=== PATIENT | male | born 1985 | race Caucasian/White ===

== ENCOUNTER → 2022-10-18 14:32 | Outpatient (BNVA) | payer OTHER, SELFPAY | PROVIDERS: PCP Internal Medicine; Visit Provider Surgery | DX: Z13.89 Encounter for screening for other disorder (principal) ==

== ENCOUNTER → 2022-10-24 14:29 | Outpatient (BNVA) | payer OTHER, SELFPAY | PROVIDERS: PCP Internal Medicine; Visit Provider Surgery | DX: L72.3 Sebaceous cyst (principal) | CPT/HCPCS: 11423 ==

== ENCOUNTER → 2022-11-01 10:02 | Outpatient (BNVA) | payer OTHER, SELFPAY | PROVIDERS: PCP Internal Medicine; Referring Provider Internal Medicine; Visit Provider Surgery | DX: Z13.89 Encounter for screening for other disorder (principal) ==

== ENCOUNTER → 2022-11-09 11:32 | Outpatient (BNVA) | payer OTHER, SELFPAY | PROVIDERS: PCP Internal Medicine; Visit Provider Physician Assistant | DX: Z13.89 Encounter for screening for other disorder (principal) ==

== ENCOUNTER 2022-11-17 11:30 | Day surgery (SDC) | payer OTHER, SELFPAY ==
[2022-11-15 10:21] VITALS: BMI 23.8
[2022-11-17 11:39] VITALS: BMI 23.8
[2022-11-17 11:46] VITALS: BP 142/98; PULSE 73; RESP 16; TEMP 36.3; O2SAT 97
--- NOTE | 2022-11-17 11:58 | MHC.SHP ---
Pre-Procedural Eval Section A Date of Service: 11/17/22 Section B Chief Complaint: Benign neoplasm of colon, unspecified Relevant Family History (Specify if Yes): No Relevant Social History: None Present Medications: see Short Stay Collaborative assessment Medical History: Significant History (Loza's syndrome) History of Previous Operations: Relevant previous surgery/procedure and date(s) (total colectomy ) Allergies: Allergies Allergy/AdvReac Type Severity Reaction Status Date / Time No Known Allergies Allergy Verified 11/09/22 11:41 Review of Systems Sugical H&P ROS: Negative: Constitution, Cardiovascular, Respiratory, Neurological, Psychiatric, Hem-Onc, Allergic/Immunologic, Gastrointestinal, Genitourinary, Musculoskeletal, Integumentary, Endocrine and Eyes/Ears/Nose/Throat Exam Surgical H&P Exam: Normal: HEENT, Normal: Heart, Normal: Lungs, Normal: Extremities, Normal: Abdomen, Normal: Skin and Normal: Neurological Plan Diagnosis/Plan: Unchanged I have reviewed the history and physical and performed a pertinent physical examination on my patient. No changes have occurred unless specified. Time Spent With Patient Time: Total time managing care of this patient today ____ minutes.
--- NOTE | 2022-11-17 12:03 | P.CONAN_ITS ---
HPI - Anesthesia Eval Consult details Narrative: 37 yo male patient for EGD, Flexible sigmoidoscopy PMFSH Active Problems Active Problems: All Active Problems (Updated 11/09/22 @ 13:41 by Keiry Bourgeois PA-C) Loza's syndrome (Acute) History of prostatectomy (Acute) History of total colectomy (Acute) Colon cancer screening (Acute) Scalp cyst (Acute) Familial adenomatous polyposis (Acute) Encounter for general adult medical examination with abnormal findings (Acute) Past Medical History Medical History Loza's syndrome Family History Family History Father Colon cancer Paternal Grandmother Colon cancer Family history of problems with anesthesia: No Surgical History Surgical History (Updated 11/17/22 @ 12:26 by Nina Moore MD) History of prostatectomy History of removal of cyst Status post proctocolectomy History of Problems with Anesthesia: No Social History Social History Household Members Other:: single- lives with mom Housing: Apartment Patient Tobacco Use Status: Never used Tobacco e-Cigarette/Vaping Use: Never Used Use of substances other than those prescribed or required for medical reasons: No Are you DNR?: No Advance Directives: No Advance Directives Information Provided: Yes Recently lost weight without trying: No Nutrition Risks: No Nutritional Risk Current occupational status: employed Current occupation: [employer] Cognitive needs: No Hearing needs: No Vision needs: Yes Meds Allergies Allergy/AdvReac Type Severity Reaction Status Date / Time No Known Allergies Allergy Verified 11/09/22 11:41 Active Medications: Current Medications Sodium Biphosphate/Sodium Phosphate (Sodium Phosphate,[place]-Dibasic 133 Ml Enema) 133 ml OR ONCE PRN PRN Reason: Consult order Home Medications Medication Instructions Recorded Confirmed Last Taken Type No Known Home Meds 10/05/22 11/17/22 Unknown History Exam Exam Date and Time: November 17, 2022 1203 Height,Weight and Vital Signs: Height 5 ft 6 in Weight 67.132 kg Last Vital Signs Temp 97.4 F 11/17/22 11:46 Pulse 73 11/17/22 11:46 Resp 16 11/17/22 11:46 BP 142/98 H 11/17/22 11:46 Pulse Ox 97 11/17/22 11:46 O2 Del Method 11/17/22 11:46 Airway Mallampati Class: III (Overcrowding of teeth anteriorly. Narrow anterior oral cavity) TM Dist: >3cm Neck ROM: Full Partial: Upper Loose/Missing/Broken Teeth: Yes (Denies loose or broken teeth) Heart: RRR Lungs: CTAB Assessment and Plan Assessment Anesthesia Assessment: Anesthesia Plan Discussed and Chart Reviewed Final Anesthetic Review Family History of Problems with Anesthesia: No History of Problems with Anesthesia: No NPO: Yes ASA Class: III Final Preanesthetic Review: No Changes in Pt Med Stat, Meds/Allgs Chart Reviewed, Consent Obtained/Reviewed and Anes Risks/Benef Reviewed Patient Risk: Intermediate Procedure Risk: Low Assessment/Block/Sedation in SS: Assess/Block/Sedation-SS Anesthetic Plan Anesthetic Plan: MAC: Disposition: Standard PACU
--- NOTE | 2022-11-17 12:06 | PC.NURSE ---
PATIENT AWARE OF PLAN OF THE NEED FOR TWO FLEET ENEMAS PRIOR TO HIS PROCEDURE. INSTRUCTED THE USE OF ENEMA. HAS DONE BEFORE AND WOULD PREFER TO DO HIMSELF.
[2022-11-17] MEDS: Sodium Phosphate,Mono-Dibasic 133 ML ENEMA PR (12:07)
[2022-11-17] MEDS: Lactated Ringers 1,000 ML 100 ML IVCONT (12:40)
--- NOTE | 2022-11-17 12:40 | PC.NURSE ---
YELLOW OUTPUT PER PATIENT
--- NOTE | 2022-11-17 12:45 | W.PM.OPN ---
Operative Note Operative Note Date of Service: 11/17/22 Narrative: Operative Information Procedure Description: EGD, Sigmoidoscopy Indication: Loza Syndrome, hx of polyps Anesthesia: MAC FLEXIBLE TRANSORAL UPPER GASTROINTESTINAL ENDOSCOPY and Sigmoidoscopy Consent: Indications for the procedure and potential complications of bleeding, perforation, reaction to medications and missed diagnosis were discussed with the patient and informed consent was obtained. Instrument: Olympus GIF H 190 J mid size upper endoscope Monitoring: Vital signs and clinical assessment, continuous EKG monitoring, Pulse oximetry, Carbon Dioxide monitoring and blood pressure monitoring were done throughout the procedure. Procedure: The patient was placed in the left lateral decubitis position and pre-procedure medications were administered and a bite block was placed. The endoscope was inserted into the mouth and advanced under direct vision to the third part of duodenum. A careful inspection was made as the upper endoscope was withdrawn including a retroflexed examination of the proximal stomach; Findings and interventions are described below. Findings: Larynx:normal Esophagus: GE junction at 40 cm, diaphragm hiatus at 40 cm, possible short segment Barretts, bx taken Stomach: Fundic gland polyposis in the fundal area. Biopsies were obtained. Grade 2 flap valve on retroflexed examination of the cardia. Duodenum: 8-10 mm sessile polyp lesion removed with cold snare and few smaller areas looked like possible adenomatous polyps, removed with cold forceps side viewing scope used to see ampulla which appeared normal Intervention: Biopsies as noted above SIGMOIDOSCOPY: Procedure: The patient was placed in the left lateral decubitis position and pre-procedure medications were administered. After a digital rectal examination of the ano-rectum, the video colonoscope was inserted into the rectum and advanced through the colon to the rectal anal pouch The colonoscope was slowly withdrawn in a retrograde panoramic fashion and the colon mucosa was carefully examined including a retroflexed view of the rectum. Findings and interventions are described below. Procedure Difficulty: easy Findings: At anastomosis there were few erosions which were oozing blood, these were treated with circumferential APC. The rest of the rectum and the small bowel limbs looked normal Impression and Post Procedure Diagnosis: Endoscopy Findings: possible barretts fundic gland polyposis duodenal polyps Sigmoidoscopy Findings: anastomotic erosions s/p APC Plan: Await Pathology results Repeat endoscopies in 1-2 years or earlier if clinically indicated Above findings were reviewed with the patient and relevant handouts were provided if indicated.
[2022-11-17 13:36] VITALS: BP 116/72; PULSE 66; RESP 14; TEMP 36.6; O2SAT 96
[2022-11-17 13:51] VITALS: BP 123/87; PULSE 68; RESP 16; O2SAT 98
[2022-11-17 14:10] VITALS: BP 123/87; PULSE 62; RESP 18; TEMP 36.1; O2SAT 98
== END 2022-11-17 14:59 | disposition home or self-care (01) ==
PROVIDERS: PCP Internal Medicine; Visit Provider Internal Medicine Gastroenterology
PROC: 0DJ08ZZ Inspection of Upper Intestinal Tract, Via Natural or Artificial Opening Endoscopic (ICD-10-PCS; CPT 43235; principal; 2022-11-17 12:40)
DX: Z12.11 Encounter for screening for malignant neoplasm of colon (principal); Z86.010 Personal history of colon polyps; Z90.49 Acquired absence of other specified parts of digestive tract; Z83.71 Family history of colonic polyps; K62.6 Ulcer of anus and rectum; D13.2 Benign neoplasm of duodenum; K31.7 Polyp of stomach and duodenum; D69.2 Other nonthrombocytopenic purpura; Q87.89 Other specified congenital malformation syndromes, not elsewhere classified; Z80.0 Family history of malignant neoplasm of digestive organs; K44.9 Diaphragmatic hernia without obstruction or gangrene
CPT/HCPCS: 45334; 43251; 43239; 88305; 88342; J2250

== ENCOUNTER → 2022-11-28 10:47 | Outpatient (BNVA) | payer OTHER, SELFPAY | PROVIDERS: PCP Internal Medicine; Referring Provider Internal Medicine; Visit Provider Physician Assistant | DX: Z13.89 Encounter for screening for other disorder (principal) ==

== ENCOUNTER 2022-11-29 10:28 | Outpatient (REF) | payer OTHER, SELFPAY ==
--- NOTE | ~2022-11-29 | US_ITS ---
EXAMINATION: US ABDOMEN COMPLETE CLINICAL INFORMATION: History of colonic neoplasm. COMPARISON: None available. TECHNIQUE: Real-time imaging of the abdominal viscera. FINDINGS: PANCREAS: Normal. ABDOMINAL AORTA: The proximal, mid, and distal segments are normal in caliber. INFERIOR VENA CAVA: Visualized portions are normal. LIVER: Normal size, contour and echotexture. No evidence of liver mass or intrahepatic bile duct dilatation. GALLBLADDER: The gallbladder is physiologically distended. No gallbladder wall thickening or pericholecystic fluid. The instrument technologist has identified a 1.2 x 0.5 x 0.8 cm echogenic focus of the fundus. This has the appearance of a polyp or gallstone. The technologist reports that this was a nonmobile structure. COMMON BILE DUCT: Normal in caliber measuring 0.2 cm in diameter. RIGHT KIDNEY: Normal. No hydronephrosis. No renal calculi or focal parenchymal lesions. The kidney measures 10.2 cm in maximum dimension. LEFT KIDNEY: Normal. No hydronephrosis. No renal calculi or focal parenchymal lesions. The kidney measures 9 cm in maximum dimension. SPLEEN: Normal. The spleen measures 8.3 cm in maximum dimension. FREE FLUID: None. US/US abdomen complete IMPRESSION: 1.2 x 0.5 x 0.8 cm structure of the gallbladder fundus could represent a polyp or a stone adherent to the gallbladder wall. Recommend ultrasound follow-up at 6 months to determine whether the finding persists. If stable at 6 months, then consider follow-up at 12, 24 and 36 months.
[2022-11-29 13:50] LABS: MANUAL DIFF FLAG NO
[2022-11-29 13:58] LABS: Basophils Absolute Auto 0.1 X10*3/uL (0.0-0.2); Basophils Percent Auto 0.9 % (0-2); Eosinophils Absolute Auto 0.1 X10*3/uL (0.0-0.4); Hematocrit 36.8 % (42.0-52.0); Hemoglobin 12.1 g/dl (14.0-18.0); Imm Gran Abs Auto 0.02 X10*3/uL (0.00-0.03); Imm Gran Pct Auto 0.4 % (0.0-0.4); Lymphocytes Absolute Auto 1.6 X10*3/uL (1.2-4.9); Lymphocytes Percent Auto 27.9 % (20-40); Mean Corpuscular HGB Conc 32.9 g/dl (31.0-36.0); Mean Corpuscular Volume 91.3 fL (80.0-98.0); Mean Platelet Volume 10.8 fL (9.4-12.4); Monocytes Absolute Auto 0.7 X10*3/uL (0.1-1.2); Monocytes Percent Auto 12.6 % (2-11); Neutrophils Absolute Auto 3.2 x10*3/uL (2.0-8.3); Neutrophils Percent Auto 56.2 % (45-73); Platelet Count 408 X10*3/uL (160-400); Red Blood Count 4.03 X10*6/uL (4.60-5.80); Red Cell Distribution Width 12.4 % (11.0-16.0); White Blood Count 5.6 X10*3/uL (4.8-10.8)
[2022-11-29 14:26] LABS: Alanine Aminotransferase 22 U/L (0-40); Albumin Level 4.3 g/dL (3.5-5.0); Alkaline Phosphatase 61 U/L (39-117); Anion Gap 12 (12-20); Aspartate Amino Transferase 22 U/L (5-37); Bilirubin Total 1.7 mg/dL (0.0-1.0); Blood Urea Nitrogen 18 mg/dL (9-16); Calcium 9.2 mg/dL (8.4-10.2); Carbon Dioxide 30 mmol/L (22-29); Chloride 105 mmol/L (96-108); Cholesterol 150 mg/dL; Estimated Glomerular Filt Rate > 60; Glucose Fasting 100 mg/dL (60-99); HDL Cholesterol 43 mg/dL; LDL Cholesterol Calculated 77 mg/dl; Potassium 4.4 mmol/L (3.3-5.1); Sodium 143 mmol/L (135-145); Total Protein 6.6 g/dL (6.5-8.0); Triglycerides 151 mg/dL
[2022-11-29 14:50] LABS: Vitamin B12 341 pg/mL (200-900)
[2022-12-04 18:49] LABS: Vitamin D 25-OH, D2 <4 ng/mL; Vitamin D 25-OH, D3 15 ng/mL; Vitamin D 25-OH, Total 15 ng/mL (30-100)
== END 2022-11-29 10:29 | disposition home or self-care (01) ==
LOC: HO.HMGCX 10:28
PROVIDERS: PCP Internal Medicine; Visit Provider Physician Assistant
DX: Z00.01 Encounter for general adult medical examination with abnormal findings (principal); K90.9 Intestinal malabsorption, unspecified; D12.6 Benign neoplasm of colon, unspecified; Q87.89 Other specified congenital malformation syndromes, not elsewhere classified; Z90.49 Acquired absence of other specified parts of digestive tract
CPT/HCPCS: 36415; 76700; 80053; 80061; 82306; 82607; 85025

== ENCOUNTER 2023-09-15 12:37 | Outpatient (AMB) | payer OTHER, SELFPAY ==
[2023-09-15 12:42] VITALS: BP 136/78; PULSE 73; O2SAT 98; BMI 23.0
--- NOTE | 2023-09-15 12:42 | MHC.PC.OV ---
Vital Signs 09/15/23 12:42 Height 5 ft 6 in Weight 142 lb 6 oz BMI 23.0 BP 136/78 Blood Pressure Location Lt brachial Position Sitting Pulse 73 Pulse Source Pulse Oximeter Pulse Oximetry (%) 98 Oxygen Delivery Method Room Air Intake Visit Reasons: Lump right testicle Allergies No Known Allergies Allergy (Verified 09/15/23 12:43) Medication List - Last Reconciled 09/15/23 by Maynor Dowling MD No Known Home Meds Tobacco use date assessed: 09/15/23 Dental Screening Dental Screen Date: 09/15/23 Did you have a dental visit in the last 12 months?: No Did you have a dental problem in the last 6 months where you did not have access to dental care?: No Was dental information given to patient?: No HPI Lump right testicle HPI Details Patient is 38-year-old gentleman with a history of familial adenomatosis polyposis Had ultrasound of his gallbladder November of last year which showed possibility of gallstone or polyp, six-month follow-up ultrasound was recommended He has appointment coming up with the Gastro next month Came in today with a chief complaint of lump right side of scrotum which he noticed 2 weeks ago which is nontender On examination right scrotum is larger than left, however there is no tenderness on palpation. I have ordered ultrasound of scrotum to further evaluate Patient have an appointment for physical examination end of this month. [facility] Medical History Loza's syndrome Surgical History History of esophagogastroduodenoscopy (EGD) Hx of colonoscopy Status post proctocolectomy History of removal of cyst History of prostatectomy Family History Father Colon cancer Paternal Grandmother Colon cancer Social History Household Members Other:: single- lives with mom Housing: Apartment Patient Tobacco Use Status: Never used Tobacco e-Cigarette/Vaping Use: Never Used Current occupational status: employed Current occupation: [employer] Cognitive needs: No Hearing needs: No Vision needs: Yes Review of Systems Const Denies chills and Denies fever(s) ENT Denies epistaxis and Denies nasal discharge Card Denies chest pain Resp Denies chest congestion, Denies cough and Denies hemoptysis GI Denies diarrhea and Denies nausea Skin/Breast Denies rash Neuro Reports no additional complaints Psych Reports no additional complaints Endo Reports no additional complaints Physical exam (Primary Care) Vital Signs: Last Vital Signs Pulse 73 09/15/23 12:42 BP 136/78 09/15/23 12:42 Pulse Ox 98 09/15/23 12:42 Oxygen Delivery Method Room Air 09/15/23 12:42 BMI result Body Mass Index 23.0 Tobacco/Smoking Status: Tobacco use Status Tobacco use date assessed 09/15/23 09/15/23 12:45 Patient Tobacco Use Status Never used Tobacco 09/15/23 12:45 e-Cigarette/Vaping Use Never Used 09/15/23 12:45 Const General: cooperative, comfortable and no acute distress Orientation/consciousness: patient oriented x3 HENMT Head: Yes normocephalic Eyes General: appearance normal, both eyes and all related structures Neck Neck: Yes supple Resp Effort & Inspection: normal respiratory effort, no cough and no stridor Cardio Rhythm: regular rhythm Heart sounds: S1 normal heart sound present and S2 normal heart sound present Other: Right scrotum larger than left, no pain with palpation Skin General skin exam: turgor normal Neuro General: patient oriented x3, tone normal and moves all extremities Extrem Right lower extremity: no edema Left lower extremity: no edema Assessment and Plan Assessment & Plan (1) Lump in scrotum: Code(s): N50.89 - Other specified disorders of the male genital organs (2) Familial adenomatous polyposis: Code(s): D12.6 - Benign neoplasm of colon, unspecified (3) Gallbladder polyp: Code(s): K82.4 - Cholesterolosis of gallbladder Plan Patient is 38-year-old gentleman with a history of familial adenomatosis polyposis Had ultrasound of his gallbladder November of last year which showed possibility of gallstone or polyp, six-month follow-up ultrasound was recommended He has appointment coming up with the Gastro next month Came in today with a chief complaint of lump right side of scrotum which he noticed 2 weeks ago which is nontender On examination right scrotum is larger than left, however there is no tenderness on palpation. I have ordered ultrasound of scrotum to further evaluate Patient have an appointment for physical examination end of this month. Orders: Orders US scrotum doppler Today N50.89 - Other specified disorders of the male genital organs Coding Level of Care Code Est Pt Level 4 (60363) Diagnoses Lump in scrotum N50.89 Familial adenomatous polyposis D12.6 Gallbladder polyp K82.4
== END 2023-09-15 14:15 | disposition home or self-care (01) ==
PROVIDERS: PCP Internal Medicine; Visit Provider Internal Medicine
DX: N50.89 Other specified disorders of the male genital organs (principal); D12.6 Benign neoplasm of colon, unspecified; K82.4 Cholesterolosis of gallbladder
CPT/HCPCS: 99214

== ENCOUNTER 2023-09-18 08:52 | Outpatient (AMB) | payer OTHER, SELFPAY ==
--- NOTE | 2023-09-18 08:57 | MHC.OFFVIS ---
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 patoent cc: nauseas and abdominal discomfort. Senior Housekeeper Required: No Accompanied by: Self / Same As Patient Allergies No Known Allergies Allergy (Verified 09/18/23 08:57) HPI HPI Comments History of Present Illness Details A 38-year-old male with Loza's s/p total colectomy- disease follows as planned to schedule 1 year EGD and sigmoidoscopy He presents with nausea for about the past month, seems to come and go he cannot identify anything specific. He does not have any abdominal pain but feels pressure-no vomiting Appetite is fair early satiety intermittently He has not had any fever chills He has be several very small stools daily (this is typical for him) [facility] Medical History Loza's syndrome Surgical History History of esophagogastroduodenoscopy (EGD) Hx of colonoscopy Status post proctocolectomy History of removal of cyst History of prostatectomy Family History Father Colon cancer Paternal Grandmother Colon cancer Social History Household Members Other:: single- lives with mom Housing: Apartment Patient Tobacco Use Status: Never used Tobacco e-Cigarette/Vaping Use: Never Used Current occupational status: employed Current occupation: [employer] Cognitive needs: No Hearing needs: No Vision needs: Yes Review of Systems Const All systems reviewed & are unremarkable except as noted in HPI and below Card Denies chest pain and Denies dyspnea Resp Denies dyspnea GI Denies hematochezia, Denies change in stool character, Denies GI cramping, Reports early satiety, Denies heartburn, Reports loose stools, Reports nausea and Denies vomiting Physical Exam Vital Signs: Last Vital Signs Pulse 89 09/18/23 09:00 BP 133/87 01/08/24 09:00 BMI result Body Mass Index 22.9 Const General: cooperative, healthy appearing, comfortable and no acute distress Orientation/consciousness: patient oriented x3 Limitations: no limitations Eyes Sclerae: sclerae normal Resp Effort & Inspection: normal respiratory effort and able to speak in complete sentences Auscultation: clear to auscultation bilaterally, no rales, no rhonchi and no wheezes Cardio Rate: regular rate Rhythm: regular rhythm Heart sounds: S1 normal heart sound present and S2 normal heart sound present GI Palpation (GI): Soft to palpation, Tenderness to palpation present (GI) (Nonspecific, mild, diffuse) and no guarding Auscultation: normal bowel sounds Skin Other: Lips chapped General skin exam: no rashes or lesions noted Neuro General: patient oriented x3 Extrem General: Yes full ROM Psych Appearance: grossly normal and well kempt Mental Status: mental status grossly normal Speech and movement: Normal speech and movement present and Clear speech present Affect: normal affect Attitude: cooperative Thought process: Normal thought process present Thought content: Normal thought content present Insight: Good insight present (Psych) Judgement: Good judgement present (Psych) Results Reviewed Results Reviewed: US/US abdomen complete IMPRESSION: 1.2 x 0.5 x 0.8 cm structure of the gallbladder fundus could represent a polyp or a stone adherent to the gallbladder wall. Recommend ultrasound follow-up at 6 months to determine whether the finding persists. If stable at 6 months, then consider follow-up at 12, 24 and 36 months. Assessment & Plan Assessment & Plan (1) Loza's syndrome: Comment: And due for 1 year repeat endoscopy Code(s): Q87.89 - Other specified congenital malformation syndromes, not elsewhere classified Plan: Sigmoidoscopy, EGD (2) History of total colectomy: Code(s): Z90.49 - Acquired absence of other specified parts of digestive tract (3) Familial adenomatous polyposis: Code(s): D12.6 - Benign neoplasm of colon, unspecified Plan: Sigmoidoscopy and EGD (4) Nausea: Comment: zofran trial-try to identify if does not resolve encouraged to call- Code(s): R11.0 - Nausea Plan: Try to identify EGD as planned Trial of Zofran if persists follow-up (5) Gallbladder polyp: Comment: US/US abdomen complete IMPRESSION: 1.2 x 0.5 x 0.8 cm structure of the gallbladder fundus could represent a polyp or a stone adherent to the gallbladder wall. Recommend ultrasound follow-up at 6 months to determine whether the finding persists. If stable at 6 months, then consider follow-up at 12, 24 and 36 months. Code(s): K82.4 - Cholesterolosis of gallbladder Plan: Resubmit it order for follow-up ultrasound Plan EGD/ SIGMOIDOscopy-DR. OLMEDO- ESTABLISHED- U/s Orders: Orders US abdomen complete Today D12.6 - Benign neoplasm of colon, unspecified, K82.4 - Cholesterolosis of gallbladder, Q87.89 - Other specified congenital malformation syndromes, not elsewhere classified, R11.0 - Nausea, Z90.49 - Acquired absence of other specified parts of digestive tract EGD/Sigmoid Combo -GI Use Only Today D12.6 - Benign neoplasm of colon, unspecified, Q87.89 - Other specified congenital malformation syndromes, not elsewhere classified, R11.0 - Nausea, Z90.49 - Acquired absence of other specified parts of digestive tract Complete Blood Count Auto Diff Today Q87.89 - Other specified congenital malformation syndromes, not elsewhere classified, R11.0 - Nausea Comprehensive Met. Panel Today K82.4 - Cholesterolosis of gallbladder, Q87.89 - Other specified congenital malformation syndromes, not elsewhere classified, R11.0 - Nausea Medications: New ondansetron 4 mg PO DAILY 20 tabs 0RF Patient Instructions: Very pleasant 38-year-old male Loza syndrome, status post total colectomy due for EGD and sigmoidoscopy, presents with new onset of nausea- Try to identify culprit Will give trial to Zofran If symptoms persist will follow-up EGD and sigmoidoscopy as planned Will update labs CBC and CMP Recent admitted order for ultrasound Encouraged to call with any questions or concerns Coding Level of Care Code Est Pt Level 4 (86941) Diagnoses Loza's syndrome Q87.89 History of total colectomy Z90.49 Familial adenomatous polyposis D12.6 Nausea R11.0 Gallbladder polyp K82.4 Time Spent (min) 30
[2023-09-18 09:00] VITALS: BP 133/87; PULSE 89; BMI 22.9
== END 2023-09-18 09:33 | disposition home or self-care (01) ==
PROVIDERS: PCP Internal Medicine; Visit Provider Physician Assistant
DX: Q87.89 Other specified congenital malformation syndromes, not elsewhere classified (principal); Z90.49 Acquired absence of other specified parts of digestive tract; D12.6 Benign neoplasm of colon, unspecified; R11.0 Nausea; K82.4 Cholesterolosis of gallbladder
CPT/HCPCS: 99214

== ENCOUNTER → 2023-09-18 08:52 | Outpatient (BNVA) | payer OTHER, SELFPAY | PROVIDERS: PCP Internal Medicine; Visit Provider Physician Assistant ==

== ENCOUNTER 2023-09-18 10:03 | Outpatient (REF) | payer OTHER, SELFPAY ==
[2023-09-18 14:23] LABS: Alanine Aminotransferase 40 U/L (0-40); Albumin Level 4.5 g/dL (3.5-5.0); Alkaline Phosphatase 60 U/L (39-117); Anion Gap 10 (12-20); Aspartate Amino Transferase 26 U/L (5-37); Bilirubin Total 1.9 mg/dL (0.0-1.0); Blood Urea Nitrogen 18 mg/dL (9-16); Calcium 9.6 mg/dL (8.4-10.2); Carbon Dioxide 27 mmol/L (22-29); Chloride 104 mmol/L (96-108); Estimated Glomerular Filt Rate > 60; Glucose Random 94 mg/dL (60-115); Potassium 3.9 mmol/L (3.3-5.1); Sodium 137 mmol/L (135-145); Total Protein 7.5 g/dL (6.5-8.0)
== END 2023-09-18 10:04 | disposition home or self-care (01) ==
LOC: HO.HMGCLDS 10:03
PROVIDERS: PCP Internal Medicine; Visit Provider Physician Assistant
DX: R11.0 Nausea (principal); Q87.89 Other specified congenital malformation syndromes, not elsewhere classified; K82.4 Cholesterolosis of gallbladder
CPT/HCPCS: 36415; 80053; 85025

== ENCOUNTER 2023-09-27 09:53 | Outpatient (REF) | payer OTHER, SELFPAY ==
--- NOTE | ~2023-09-27 | US_ITS ---
EXAMINATION: US ABDOMEN COMPLETE CLINICAL INFORMATION: Prior abnormal imaging. Follow-up. COMPARISON: 11/29/2022 TECHNIQUE: Real-time imaging of the abdominal viscera. FINDINGS: PANCREAS: Tail obscured. ABDOMINAL AORTA: The proximal, mid, and distal segments are normal in caliber. INFERIOR VENA CAVA: Visualized portions are normal. LIVER: The liver is normal in size. The liver contour is normal. There is diffuse increased liver parenchymal echogenicity, consistent with hepatic steatosis. No focal hepatic lesion. There is no intrahepatic biliary duct dilatation seen. GALLBLADDER: The gallbladder is physiologically distended. No gallbladder wall thickening or pericholecystic fluid. There is a dependent focus at the gallbladder fundus measuring 0.8 x 0.3 x 0.4 cm with single artifact. This may represent a calculus. Previous measurements are 1.3 x 0.5 x 0.9 cm. No sonographic Garcia's sign. COMMON BILE DUCT: Normal in caliber measuring 0.3 cm in diameter. RIGHT KIDNEY: No hydronephrosis. No renal calculi or focal parenchymal lesions. The kidney measures 10.3 cm in maximum dimension. LEFT KIDNEY: No hydronephrosis. No renal calculi or focal parenchymal lesions. The kidney measures 9.9 cm in maximum dimension. SPLEEN: The spleen measures 9.0 cm in maximum dimension. FREE FLUID: None. US/US abdomen complete IMPRESSION: Possible gallstone measuring 0.8 x 0.2 x 0.4 cm.
--- NOTE | ~2023-09-27 | US_ITS ---
EXAMINATION: US SCROTUM CLINICAL INFORMATION: Other specified disorders of the male genital organs. Scrotal mass. COMPARISON: None available. TECHNIQUE: A sonogram of the scrotum was performed assessing gonzalez-scale appearance and color Doppler flow. Spectral Doppler analysis of the arterial and venous flow were performed in the testes bilaterally. FINDINGS: RIGHT: Right testicle measures 4.7 x 1.9 x 3.0 cm, volume 14.0 mL. In the anteromedial right testicle adjacent to the tunica albuginea, a 4 x 3 x 4 mm heterogeneously hypoechoic focus is seen. This shows no associated color Doppler flow. Spectral Doppler analysis of the arterial and venous flow is normal in the right testis. Right epididymal head is normal in size. No right varicocele is seen. There is a small hydrocele. A 4 mm right extratesticular calcification ( scrotal susanna ) is seen. Right epididymal Doppler flow is normal. LEFT: Left testicle measures 4.7 x 2.2 x 2.9 cm, volume 15.7 mL. No focal testicular parenchymal lesions are visualized. Spectral Doppler analysis of the arterial and venous flow is normal in the left testis. Left epididymal head is normal in size. No left varicocele is seen. There is a small hydrocele. Left epididymal Doppler flow is normal. US/US scrotum IMPRESSION: 1. A 4 mm heterogeneously hypoechoic density is seen in the anteromedial right testicle. There is no associated color Doppler flow. The etiology is indeterminate, and a neoplasm is not excluded. Urology evaluation and management is recommended, with consideration for short-term follow-up ultrasound imaging to assess for stability/regression. 2. A 4 mm right extratesticular calcification is seen. 3. There are small bilateral hydroceles.
== END 2023-09-27 09:54 | disposition home or self-care (01) ==
LOC: HO.HMGCX 09:53
PROVIDERS: PCP Internal Medicine; Visit Provider Physician Assistant
DX: N50.89 Other specified disorders of the male genital organs (principal); D12.6 Benign neoplasm of colon, unspecified; K82.4 Cholesterolosis of gallbladder; R11.0 Nausea; Q87.89 Other specified congenital malformation syndromes, not elsewhere classified; Z90.49 Acquired absence of other specified parts of digestive tract
CPT/HCPCS: 76700; 76870

== ENCOUNTER 2023-10-10 11:37 | Outpatient (AMB) | payer OTHER, SELFPAY ==
--- NOTE | 2023-10-10 11:41 | MHC.PC.OV ---
Vital Signs 10/10/23 11:42 Height 5 ft 6 in Weight 139 lb 8 oz BMI 22.5 BP 142/84 H Blood Pressure Location Lt brachial Position Sitting Pulse 85 Pulse Source Pulse Oximeter Pulse Oximetry (%) 99 Oxygen Delivery Method Room Air Intake Visit Reasons: Annual Physical Allergies No Known Allergies Allergy (Verified 10/10/23 11:42) Medication List - Last Reconciled 10/10/23 by Maynor Dowling MD ondansetron 4 mg PO DAILY Tobacco use date assessed: 10/10/23 Dental Screening Dental Screen Date: 10/10/23 Did you have a dental visit in the last 12 months?: No Did you have a dental problem in the last 6 months where you did not have access to dental care?: No Was dental information given to patient?: No HPI Annual Physical HPI Details Patient is a 38-year-old gentleman came in today for physical exam He has history of chronic nausea off and on, gallbladder polyp, Loza's syndrome, history of total colectomy, patient is established with [facility] last visit was of this month, patient is having EGD and sigmoidoscopy every year. Labs were done recently reviewed His blood pressure is elevated today We talked about starting to monitor blood pressure at home, he will let me know if it runs above 140 systolic It has been running fine but since early this month I see that his systolic blood pressure has been running in 130s and today it is 142 He is still waiting for urology appointment I have given him a number to call in book his own appointment He was seen few weeks ago when he came in with a concern of lump on his right testes We ordered the ultrasound which showed 1. A 4 mm heterogeneously hypoechoic density is seen in the anteromedial right testicle. There is no associated color Doppler flow. The etiology is indeterminate, and a neoplasm is not excluded. Urology evaluation and management is recommended, with consideration for short-term follow-up ultrasound imaging to assess for stability/regression. 2. A 4 mm right extratesticular calcification is seen. 3. There are small bilateral hydroceles. He had labs done early this month through Gastroenterology Reviewed He offers no complaints today Patient will return in 1 year for physical exam or earlier depending on his blood pressure readings at home [facility] Medical History Loza's syndrome Surgical History History of esophagogastroduodenoscopy (EGD) Hx of colonoscopy Status post proctocolectomy History of removal of cyst History of prostatectomy Family History Father Colon cancer Paternal Grandmother Colon cancer Social History Household Members Other:: single- lives with mom Housing: Apartment Patient Tobacco Use Status: Never used Tobacco e-Cigarette/Vaping Use: Never Used Current occupational status: employed Current occupation: [email or web address] Cognitive needs: No Hearing needs: No Vision needs: Yes Review of Systems Const Denies chills, Denies fever(s) and Denies headache(s) Eyes Denies blurry vision ENT Denies headache(s), Denies nasal discharge, Denies nasal obstruction, Denies odynophagia and Denies sinus pain Card Denies chest pain at rest and Denies chest pain with activity Resp Denies cough and Denies hemoptysis GI Denies diarrhea, Denies odynophagia, Denies vomiting and Denies hematemesis Reports as per HPI Musc Denies abnormal gait Skin/Breast Reports as per HPI Neuro Denies Neuro-related abnormal movements, Denies Abnormal speech present, Denies abnormal gait, Denies headache(s) and Denies Sensory deficit (Neuro) Psych Denies mood swings and Denies paranoia Endo Reports as per HPI Ybron/Lymph Reports as per HPI Aller/Immun Reports as per HPI Physical exam (Primary Care) Vital Signs: Last Vital Signs Pulse 85 10/10/23 11:42 BP 142/84 H 10/10/23 11:42 Pulse Ox 99 10/10/23 11:42 Oxygen Delivery Method Room Air 10/10/23 11:42 BMI result Body Mass Index 22.5 Tobacco/Smoking Status: Tobacco use Status Tobacco use date assessed 10/10/23 10/10/23 11:45 Patient Tobacco Use Status Never used Tobacco 10/10/23 11:41 e-Cigarette/Vaping Use Never Used 10/10/23 11:41 Const General: cooperative, comfortable and no acute distress Orientation/consciousness: patient oriented x3 HENMT Head: Yes normocephalic and Yes atraumatic Eyes General: appearance normal, both eyes and all related structures Pupils: Equal, round and reactive pupils present EOM: EOMs intact bilaterally Neck Neck: Yes supple and No lymphadenopathy Thyroid: Thyroid normal Lymphatic: no lymphadenopathy noted Resp Effort & Inspection: normal respiratory effort and able to speak in complete sentences Auscultation: clear to auscultation bilaterally Cardio Heart sounds: S1 normal heart sound present and S2 normal heart sound present GI Palpation (GI): Soft to palpation and nontender Auscultation: normal bowel sounds General: Yes no CVA tenderness Back/Spine/Pelvis Back: no CVA tenderness Skin General skin exam: elasticity normal and turgor normal Neuro General: patient oriented x3 and gait normal Cranial nerves: Yes Equal, round and reactive pupils present Speech: No Abnormal speech present Sensory Exam: No Sensory deficit (Neuro) Coordination: tandem gait normal and Romberg test negative Extrem General: Yes normal exam except as noted and No edema Assessment and Plan Assessment & Plan (1) Encounter for general adult medical examination with abnormal findings: Code(s): Z00.01 - Encounter for general adult medical examination with abnormal findings (2) Familial adenomatous polyposis: Code(s): D12.6 - Benign neoplasm of colon, unspecified (3) Colon cancer screening: Code(s): Z12.11 - Encounter for screening for malignant neoplasm of colon (4) Loza's syndrome: Comment: And due for 1 year repeat endoscopy Code(s): Q87.89 - Other specified congenital malformation syndromes, not elsewhere classified (5) Lump in scrotum: Code(s): N50.89 - Other specified disorders of the male genital organs (6) Gallbladder polyp: Comment: US/US abdomen complete IMPRESSION: 1.2 x 0.5 x 0.8 cm structure of the gallbladder fundus could represent a polyp or a stone adherent to the gallbladder wall. Recommend ultrasound follow-up at 6 months to determine whether the finding persists. If stable at 6 months, then consider follow-up at 12, 24 and 36 months. Code(s): K82.4 - Cholesterolosis of gallbladder (7) Nausea: Comment: zofran trial-try to identify if does not resolve encouraged to call- Code(s): R11.0 - Nausea (8) Hydrocele of testis: Code(s): N43.3 - Hydrocele, unspecified Plan Patient is a 38-year-old gentleman came in today for physical exam He has history of chronic nausea off and on, gallbladder polyp, Loza's syndrome, history of total colectomy, patient is established with [facility] last visit was 8th of this month, patient is having EGD and sigmoidoscopy every year. Labs were done recently reviewed His blood pressure is elevated today We talked about starting to monitor blood pressure at home, he will let me know if it runs above 140 systolic It has been running fine but since early this month I see that his systolic blood pressure has been running in 130s and today it is 142 He is still waiting for urology appointment I have given him a number to call in book his own appointment He was seen few weeks ago when he came in with a concern of lump on his right testes We ordered the ultrasound which showed 1. A 4 mm heterogeneously hypoechoic density is seen in the anteromedial right testicle. There is no associated color Doppler flow. The etiology is indeterminate, and a neoplasm is not excluded. Urology evaluation and management is recommended, with consideration for short-term follow-up ultrasound imaging to assess for stability/regression. 2. A 4 mm right extratesticular calcification is seen. 3. There are small bilateral hydroceles. He had labs done early this month through Gastroenterology Reviewed He offers no complaints today Patient will return in 1 year for physical exam or earlier depending on his blood pressure readings at home Coding Level of Care Code Est Pt Prev Care 18-39y([id number]) Diagnoses Encounter for general adult medical examination with abnormal findings Z00.01 Familial adenomatous polyposis D12.6 Colon cancer screening Z12.11 Loza's syndrome Q87.89 Lump in scrotum N50.89 Gallbladder polyp K82.4 Nausea R11.0 Hydrocele of testis N43.3
[2023-10-10 11:42] VITALS: BP 142/84; PULSE 85; O2SAT 99; BMI 22.5
== END 2023-10-10 16:21 | disposition home or self-care (01) ==
PROVIDERS: Visit Provider Internal Medicine
DX: Z00.01 Encounter for general adult medical examination with abnormal findings (principal); D12.6 Benign neoplasm of colon, unspecified; Q87.89 Other specified congenital malformation syndromes, not elsewhere classified; N50.89 Other specified disorders of the male genital organs; K82.4 Cholesterolosis of gallbladder; R11.0 Nausea; N43.3 Hydrocele, unspecified
CPT/HCPCS: 99395

== ENCOUNTER 2023-10-25 15:14 | Outpatient (AMB) | payer OTHER, SELFPAY ==
--- NOTE | 2023-10-25 15:35 | A.OFFVIS_ITS ---
Intake Intake Visit Reasons: abnormal scrotal US(set) Intake Note: New Patient presents for initial visit for right testicular lump Imagin09/27/23 Urology Medications: none Blood Thinner: none Content Producer Required: No Right Of Way Buyer: Right Of Way Buyer offered & declined Accompanied by: Self / Same As Patient Allergies No Known Allergies Allergy (Verified 10/26/23 00:20) Medication List - Last Reconciled 10/26/23 by ROSALIA Raygoza No Known Home Meds HPI HPI Comments History of Present Illness Details Chang Rodríguez is a pleasant 38-year-old male patient of Dr. Dowling. 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 He presents to the office today as a new patient for right-sided testicular mass. He reports following up with his PCP regarding this issue at which time a scrotal ultrasound was ordered and performed. These results were reviewed with the patient today. A 4 mm heterogeneous hypoechoic density is seen in the anteromedial right testicle. There is no associated color Doppler flow. The etiology is indeterminate, and a neoplasm is not excluded. A 4 mm right extratesticular calcification is seen. There are small bilateral hydroceles. When asked he reports noting palpable mass approximately 2 months ago. He denies any previous trauma to the area. He does not have any children. In assessment of the patient today small bilateral hydroceles are palpated otherwise no palpable masses, lesions, and or nodules. He denies any bothersome urinary issues or concerns. He denies pain. He denies urinary urgency, urinary frequency, incontinence, nocturia, hematuria, dysuria, foul smelling urine, changes to urinary stream, flank pain, fever, and or chills. He is happy with his current voiding parameters. [facility] Medical History Loza's syndrome Surgical History History of esophagogastroduodenoscopy (EGD) Hx of colonoscopy Status post proctocolectomy History of removal of cyst History of prostatectomy Family History Father Colon cancer Paternal Grandmother Colon cancer Social History Household Members Other:: single- lives with mom Housing: Apartment Patient Tobacco Use Status: Never used Tobacco e-Cigarette/Vaping Use: Never Used Current occupational status: employed Current occupation: [employer] Cognitive needs: No Hearing needs: No Vision needs: Yes Review of Systems Const Reports no additional complaints Eyes Reports no additional complaints ENT Reports no additional complaints Card Reports no additional complaints Resp Reports no additional complaints GI Reports as per HPI Reports as per HPI Musc Reports no additional complaints Neuro Reports no additional complaints Psych Reports no additional complaints Physical Exam Const General: cooperative, comfortable, no acute distress, well developed, alert and awake Nutritional Appearance: thin Orientation/consciousness: patient oriented x3 Limitations: no limitations HEENT Head: Yes normal to inspection, Yes normocephalic and Yes atraumatic Ears: hearing grossly normal bilaterally Eyes General: appearance normal, both eyes and all related structures Neck Neck: Yes normal visual inspection and Yes trachea midline Chest Chest palpation & inspection: normal inspection of the chest Resp Effort & Inspection: normal respiratory effort and able to speak in complete sentences Cardio Rate: regular rate GI Inspection: Yes normal to inspection General: Yes no CVA tenderness Back/Spine/Pelvis Back: no CVA tenderness Skin General skin exam: no rashes or lesions noted Neuro General: patient oriented x3 Extrem General: Yes normal to inspection Psych Appearance: grossly normal and well kempt Mental Status: mental status grossly normal Speech and movement: Normal speech and movement present and Clear speech present Affect: normal affect Attitude: cooperative Thought process: Normal thought process present Thought content: Normal thought content present Insight: Fair insight present (Psych) Judgement: Fair judgement present (Psych) Results AMB Urinalysis, Automated UA Leukoctes 0 Asim/uL Last Edit by Osiris Bermudez CMA on 10/25/23 15 :49 UA Nitrite Negative Last Edit by Osiris Bermudez CMA on 10/25/23 15: 49 UA Urobilinogen 0.2 mg/dL Last Edit by Osiris Bermudez CMA on 4 15:49 UA Protein 15 mg/dL Last Edit by Osiris Bermudez CMA on 10/25/23 15:4 9 UA pH 6.0 Last Edit by Osiris Bermudez CMA on 10/25/23 15:49 UA Blood 10 Mathieu/uL Last Edit by Osiris Bermudez Bermudez, [facility] on 10/25/23 15:49 UA Specific [place] 1.030 Last Edit by Osiris Bermudez Bermudez, [facility] on 15:49 UA Ketone Negative Last Edit [facility] Mel[facility], [facility] on 10/25/23 15:4 9 UA Bilirubin 0 mg/dL Last Edit by [facility], [facility] on 10/25/23 15: 49 UA Glucose 0 mg/dL Last Edit by [facility], [facility] on 10/25/23 15:49 Results Reviewed Results Reviewed: Laboratory Last Values Urine pH (Auto) 6.0 10/25/23 15:36 Specific [place] (Auto) 1.030 10/25/23 15:36 Urine Protein (Auto) 15 mg/dL 10/25/23 15:36 Glucose (UA)(Auto) 0 mg/dL 10/25/23 15:36 Urine Ketones (Auto) Negative 10/25/23 15:36 Urine Blood (Auto) 10 Mathieu/uL 10/25/23 15:36 Urine Nitrite (Auto) Negative 10/25/23 15:36 Urine Bilirubin (Auto) 0 mg/dL 10/25/23 15:36 Urine Urobilinogen (Auto) 0.2 mg/dL 10/25/23 15:36 Leukocyte Esterase (Auto) 0 Asim/uL 10/25/23 15:36 Date of Service: 09/27/23 EXAMINATION: US SCROTUM FINDINGS: RIGHT: Right testicle measures 4.7 x 1.9 x 3.0 cm, volume 14.0 mL. In the anteromedial right testicle adjacent to the tunica albuginea, a 4 x 3 x 4 mm heterogeneously hypoechoic focus is seen. This shows no associated color Doppler flow. Spectral Doppler analysis of the arterial and venous flow is normal in the right testis. Right epididymal head is normal in size. No right varicocele is seen. There is a small hydrocele. A 4 mm right extratesticular calcification ( scrotal susanna ) is seen. Right epididymal Doppler flow is normal. LEFT: Left testicle measures 4.7 x 2.2 x 2.9 cm, volume 15.7 mL. No focal testicular parenchymal lesions are visualized. Spectral Doppler analysis of the arterial and venous flow is normal in the left testis. Left epididymal head is normal in size. No left varicocele is seen. There is a small hydrocele. Left epididymal Doppler flow is normal. IMPRESSION: 1. A 4 mm heterogeneously hypoechoic density is seen in the anteromedial right testicle. There is no associated color Doppler flow. The etiology is indeterminate, and a neoplasm is not excluded. Urology evaluation and management is recommended, with consideration for short-term follow-up ultrasound imaging to assess for stability/regression. 2. A 4 mm right extratesticular calcification is seen. 3. There are small bilateral hydroceles. Assessment & Plan Assessment & Plan (1) Lump in scrotum: Code(s): N50.89 - Other specified disorders of the male genital organs Plan In office urinalysis results reviewed with the patient today; as noted above. Recent scrotal ultrasound results reviewed with the patient today. Will obtain labs for further assessment evaluation. Discussed at length potential causes of hydroceles. Patient currently denies any bothersome urinary issues or concerns. He is happy with his current voiding parameters. Will reassess scrotum in 1 month for further assessment evaluation Follow-up in 1 month with labs to be completed prior; or sooner with any issues, concerns, and or questions. Orders: Orders Lactate Dehydrogenase 10/25/23 C62.90 - Malignant neoplasm of unspecified testis, unspecified whether descended or undescended Alpha Fetoprotein 10/25/23 N50.89 - Other specified disorders of the male genital organs HCG Tumor Marker 10/25/23 C62.90 - Malignant neoplasm of unspecified testis, unspecified whether descended or undescended AMB Urinalysis Automated 10/25/23 R33.9 - Retention of urine, unspecified Patient Instructions: The patient had an opportunity to ask questions regarding the treatment plan. All questions were answered. Physical exam, labs, and imaging were discussed and reviewed in detail. As well as risks, benefits, and discussion of treatment choices. No major barriers to understanding were identified. The patient expressed understanding and agreement with the above treatment plan. The patient was made aware they should contact our office by phone for worsening of their current condition, the appearance of new symptoms, or with any questions or concerns. Compliance is encouraged with any medications and follow up testing that is ordered. It is a privilege to be allowed the opportunity to participate in? your urological care.? Again, if you have any questions or concerns If you have any questions or concerns please do not hesitate to contact me. The office is [phone]. This note is constructed using voice recognition software. While every effort has been made to ensure accuracy marine chronometer assembler errors may have been included. Yours sincerely, ROSALIA Raygoza Coding Level of Care Code New Pt Level 3 (10865) Diagnoses Lump in scrotum N50.89
== END 2023-10-25 16:08 | disposition home or self-care (01) ==
PROVIDERS: PCP Internal Medicine; Visit Provider Nurse Practitioner Family
DX: N50.89 Other specified disorders of the male genital organs (principal)
CPT/HCPCS: 99203

== ENCOUNTER → 2023-10-25 15:14 | Outpatient (BNVA) | payer OTHER, SELFPAY | PROVIDERS: PCP Internal Medicine; Visit Provider Nurse Practitioner Family | DX: N50.89 Other specified disorders of the male genital organs (principal) | CPT/HCPCS: 81003 ==

== ENCOUNTER 2023-10-30 10:35 | Outpatient (REF) | payer OTHER, SELFPAY ==
[2023-10-30 13:57] LABS: Lactate Dehydrogenase 327 U/L (118-273)
[2023-10-31 05:08] LABS: HCG Tumor Marker <5 mIU/mL (<5)
[2023-10-31 13:07] LABS: Alpha Fetoprotein 4.5 ng/mL (<6.1)
== END 2023-10-30 10:36 | disposition home or self-care (01) ==
LOC: HO.HMGCLDS 10:35
PROVIDERS: PCP Internal Medicine; Visit Provider Nurse Practitioner Family
DX: C62.90 Malignant neoplasm of unspecified testis, unspecified whether descended or undescended (principal); N50.89 Other specified disorders of the male genital organs
CPT/HCPCS: 36415; 82105; 83615; 84702

== ENCOUNTER 2023-11-15 07:25 | Outpatient (REF) | payer OTHER, SELFPAY ==
--- NOTE | ~2023-11-15 | MR_ITS ---
EXAMINATION: MR ABDOMEN WITHOUT CONTRAST, MRCP CLINICAL INFORMATION: Possible 0.8 cm gallstones are noted in the gallbladder on ultrasound from 09/27/2023. COMPARISON: Abdominal ultrasound 09/27/2023. TECHNIQUE: MR abdomen is performed without gadolinium contrast. 3D MRCP images were processed on an independent workstation under concurrent supervision. FINDINGS: LUNG BASES: Unremarkable. LIVER, GALLBLADDER, AND BILIARY TREE: The upper liver was not included within the field of view on the axial images, limiting evaluation. There is a well-defined T2 bright presumed simple cyst in the periphery of the posterior right hepatic lobe measuring 0.8 cm (3:3). Liver is normal in size, morphology and signal. No suspicious lesion in this limited noncontrast examination. No evidence of cholelithiasis, gallbladder wall thickening or pericholecystic inflammatory changes. No biliary ductal dilatation. No choledocholithiasis. PANCREAS: Unremarkable. SPLEEN: Unremarkable. ADRENAL GLANDS: Unremarkable. KIDNEYS AND URETERS: The kidneys are normal in size and shape. No hydronephrosis. There is a 0.5 cm T2 bright presumed simple Bosniak 1 cyst in the upper right kidney (3:9). No perinephric stranding. GASTROINTESTINAL TRACT: No bowel obstruction. No ascites or fluid collection. ABDOMINAL WALL: No significant hernia is appreciated. LYMPH NODES: No lymphadenopathy. VASCULAR: Unremarkable. OSSEOUS STRUCTURES: No acute or aggressive appearing osseous findings. MR/MR MRCP IMPRESSION: Normal MRI appearance of the gallbladder. Recommend follow-up of the previously described possible 0.8 cm gallstone with an ultrasound in 3-6 months.
== END 2023-11-15 07:26 | disposition home or self-care (01) ==
LOC: HO.MRI 07:25
PROVIDERS: PCP Internal Medicine; Visit Provider Physician Assistant
DX: R10.11 Right upper quadrant pain (principal); R93.5 Abnormal findings on diagnostic imaging of other abdominal regions, including retroperitoneum; D12.6 Benign neoplasm of colon, unspecified; Q87.89 Other specified congenital malformation syndromes, not elsewhere classified; K82.4 Cholesterolosis of gallbladder
CPT/HCPCS: 74181

== ENCOUNTER 2023-12-08 08:33 | Outpatient (AMB) | payer OTHER, SELFPAY ==
--- NOTE | 2023-12-08 08:54 | A.OFFVIS_ITS ---
Intake Intake Visit Reasons: 1m/labs Intake Note: Patient presents for follow up visit for right testicular lump and lab results Urology Medications: none Blood Thinner: none Driving School Instructor Required: No Property Staff Accountant: Property Staff Accountant offered & declined Accompanied by: Self / Same As Patient Allergies No Known Allergies Allergy (Verified 12/08/23 09:22) Medication List - Last Reconciled 12/08/23 by ROSALIA Raygoza No Known Home Meds HPI HPI Comments History of Present Illness Details Chang Rodríguez is a pleasant 38-year-old male patient of Dr. Dowling. 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 He presents to the office today for a follow-up. Of note, patient was seen approximately 6 weeks ago as a new patient for right-sided testicular mass at which time labs were ordered for further assessment evaluation. These results were reviewed with the patient today. 11/04--lactate dehydrogenase 327, alpha f etoprotein 4.5, tumor marker HCG < 5. Previous workup has included a scrotal ultrasound noting a 4 mm heterogeneous hypoechoic density is seen in the anteromedial right testicle. There is no associated color Doppler flow. The etiology is indeterminate, and a neoplasm is not excluded. A 4 mm right extratesticular calcification is seen. There are small bilateral hydroceles. In assessment of the patient today small bilateral hydroceles are palpated otherwise no palpable masses, lesions, and or nodules. He denies any bothersome urinary issues or concerns. He denies pain. Discussed equipment monitor phototypesetting. He denies urinary urgency, urinary frequency, incontinence, nocturia, hematuria, dysuria, foul smelling urine, changes to urinary stream, flank pain, fever, and or chills. He is happy with his current voiding parameters. [facility] Medical History Loza's syndrome Surgical History History of esophagogastroduodenoscopy (EGD) Hx of colonoscopy Status post proctocolectomy History of removal of cyst History of prostatectomy Family History Father Colon cancer Paternal Grandmother Colon cancer Social History Household Members Other:: single- lives with mom Housing: Apartment Patient Tobacco Use Status: Never used Tobacco e-Cigarette/Vaping Use: Never Used Current occupational status: employed Current occupation: [employer] Cognitive needs: No Hearing needs: No Vision needs: Yes Review of Systems Const Reports no additional complaints Eyes Reports no additional complaints ENT Reports no additional complaints Card Reports no additional complaints Resp Reports no additional complaints GI Reports as per HPI Reports as per HPI Musc Reports no additional complaints Neuro Reports no additional complaints Psych Reports no additional complaints Physical Exam Const General: cooperative, comfortable, no acute distress, well developed, alert and awake Nutritional Appearance: thin Orientation/consciousness: patient oriented x3 Limitations: no limitations HEENT Head: Yes normal to inspection, Yes normocephalic and Yes atraumatic Ears: hearing grossly normal bilaterally Eyes General: appearance normal, both eyes and all related structures Neck Neck: Yes normal visual inspection and Yes trachea midline Chest Chest palpation & inspection: normal inspection of the chest Resp Effort & Inspection: normal respiratory effort and able to speak in complete sentences Cardio Rate: regular rate GI Inspection: Yes normal to inspection General: Yes no CVA tenderness Back/Spine/Pelvis Back: no CVA tenderness Skin General skin exam: no rashes or lesions noted Neuro General: patient oriented x3 Extrem General: Yes normal to inspection Psych Appearance: grossly normal and well kempt Mental Status: mental status grossly normal Speech and movement: Normal speech and movement present and Clear speech present Affect: normal affect Attitude: cooperative Thought process: Normal thought process present Thought content: Normal thought content present Insight: Fair insight present (Psych) Judgement: Fair judgement present (Psych) Results AMB Urinalysis, Automated UA Leukoctes 0 Asim/uL Last Edit by Althea Panchal on 12/08/23 09:02 UA Nitrite Negative Last Edit by HStreamingsukhwinder Panchal on 12/08/23 09:02 UA Urobilinogen 0.2 mg/dL Last Edit by AwaisAntenovasukhwinder Panchal on 12/08/23 09:02 UA Protein 30 mg/dL Last Edit by Althea Panchal on 12/08/23 09:02 UA pH 6.0 Last Edit by AwaisAntenovasukhwinder Panchal on 12/08/23 09:02 UA Blood 80 Mathieu/uL Last Edit by Althea Panchal on 12/08/23 09:02 UA Specific [place] 1.020 Last Edit by Althea Panchal on 12/08/23 09:02 UA Ketone Negative Last Edit by Althea Cavanaughalessandra on 12/08/23 09:02 UA Bilirubin 0 mg/dL Last Edit by Awaiswillardsukhwinder Cavanaughalessandra on 12/08/23 09:02 UA Glucose 0 mg/dL Last Edit by Althea Cavanaughalessandra on 12/08/23 09:02 Results Reviewed Results Reviewed: Laboratory Last Values Urine pH (Auto) 6.0 12/08/23 09:00 Specific [place] (Auto) 1.020 12/08/23 09:00 Urine Protein (Auto) 30 mg/dL 12/08/23 09:00 Glucose (UA)(Auto) 0 mg/dL 12/08/23 09:00 Urine Ketones (Auto) Negative 12/08/23 09:00 Urine Blood (Auto) 80 Mathieu/uL 12/08/23 09:00 Urine Nitrite (Auto) Negative 12/08/23 09:00 Urine Bilirubin (Auto) 0 mg/dL 12/08/23 09:00 Urine Urobilinogen (Auto) 0.2 mg/dL 12/08/23 09:00 Leukocyte Esterase (Auto) 0 Asim/uL 12/08/23 09:00 Assessment & Plan Assessment & Plan (1) Hydrocele of testis: Code(s): N43.3 - Hydrocele, unspecified (2) Lump in scrotum: Code(s): N50.89 - Other specified disorders of the male genital organs Plan In office urinalysis results reviewed with the patient today; as noted above. Recent labs reviewed with the patient today; as noted above. Discussed at length potential causes of hydroceles. Patient currently denies any bothersome urinary issues or concerns. He is happy with his current voiding parameters. Will continue with surveillance monitoring at this time Scrotal ultrasound in 6 months Follow-up in 6 months with imaging to be completed prior; or sooner with any issues, concerns, and or questions. Orders: Orders US scrotum 6 Months N43.3 - Hydrocele, unspecified, N50.89 - Other specified disorders of the male genital organs AMB Urinalysis Automated Today Z13.9 - Encounter for screening, unspecified Patient Instructions: The patient had an opportunity to ask questions regarding the treatment plan. All questions were answered. Physical exam, labs, and imaging were discussed and reviewed in detail. As well as risks, benefits, and discussion of treatment choices. No major barriers to understanding were identified. The patient expressed understanding and agreement with the above treatment plan. The patient was made aware they should contact our office by phone for worsening of their current condition, the appearance of new symptoms, or with any questions or concerns. Compliance is encouraged with any medications and follow up testing that is ordered. It is a privilege to be allowed the opportunity to participate in? your urological care.? Again, if you have any questions or concerns If you have any questions or concerns please do not hesitate to contact me. The office is [phone]. This note is constructed using voice recognition software. While every effort has been made to ensure accuracy qa auditor errors may have been included. Yours sincerely, ROSALIA Raygoza Coding Level of Care Code Est Pt Level 3 (63160) Diagnoses Hydrocele of testis N43.3 Lump in scrotum N50.89
== END 2023-12-08 09:34 | disposition home or self-care (01) ==
PROVIDERS: PCP Internal Medicine; Visit Provider Nurse Practitioner Family
DX: N43.3 Hydrocele, unspecified (principal); N50.89 Other specified disorders of the male genital organs; Z13.9 Encounter for screening, unspecified
CPT/HCPCS: 99213

== ENCOUNTER → 2023-12-08 08:33 | Outpatient (BNVA) | payer OTHER, SELFPAY | PROVIDERS: PCP Internal Medicine; Visit Provider Nurse Practitioner Family | DX: N43.3 Hydrocele, unspecified (principal); N50.89 Other specified disorders of the male genital organs | CPT/HCPCS: 81003 ==

== ENCOUNTER 2023-12-28 09:05 | Day surgery (SDC) | payer OTHER, SELFPAY ==
[2023-12-26 13:11] VITALS: BMI 22.9
--- NOTE | 2023-12-27 16:55 | P.CONAN_ITS ---
HPI - Anesthesia Eval Consult details Narrative: 38 yo male patient for EGD, Flexible sigmoidoscopy PMFSH Active Problems Active Problems: All Active Problems RUQ pain (Acute) Abnormal abdominal ultrasound (Acute) Hydrocele of testis (Acute) Nausea (Acute) Gallbladder polyp (Acute) Lump in scrotum (Acute) Loza's syndrome (Acute) History of total colectomy (Acute) Colon cancer screening (Acute) Scalp cyst (Acute) Familial adenomatous polyposis (Acute) Encounter for general adult medical examination with abnormal findings (Acute) Patient denies h/o prostatectomy Past Medical History Medical History Loza's syndrome Family History Family History Father Colon cancer Paternal Grandmother Colon cancer Family history of problems with anesthesia: No Surgical History Surgical History (Updated 12/28/23 @ 11:21 by Nina Moore MD) History of esophagogastroduodenoscopy (EGD) Hx of colonoscopy Status post proctocolectomy History of removal of cyst History of prostatectomy History of Problems with Anesthesia: No Social History Social History Household Members Other:: single- lives with mom Housing: Apartment Patient Tobacco Use Status: Never used Tobacco e-Cigarette/Vaping Use: Never Used Are you DNR?: No Advance Directives: No Advance Directives Information Provided: Yes Nutrition Risks: No Nutritional Risk Current occupational status: employed Current occupation: [employer] Cognitive needs: No Hearing needs: No Vision needs: Yes Meds Allergies Allergy/AdvReac Type Severity Reaction Status Date / Time No Known Allergies Allergy Verified 12/28/23 09:45 Home Medications ?Medication ?Instructions ?Recorded ?Confirmed ?Last Taken ?Type No Known Home Meds 10/26/23 10/26/23 Unknown History Exam Height,Weight and Vital Signs: Height 5 ft 6 in Weight 64.41 kg Vital Signs Temp Pulse Resp BP Pulse Ox O2 Del Method 12/28/23 10:35 98.2 F 73 18 144/99 H 100 Room Air Airway Mallampati Class: III TM Dist: >3cm Neck ROM: Full Partial: Upper Loose/Missing/Broken Teeth: Yes (Overcrowding of teeth anteriorly. 1 missing tooth bottom right back. Denies loose teeth) Heart: RRR Lungs: CTAB Assessment and Plan Assessment Anesthesia Assessment: Anesthesia Plan Discussed and Chart Reviewed Final Anesthetic Review Family History of Problems with Anesthesia: No History of Problems with Anesthesia: No NPO: Yes ASA Class: III Final Preanesthetic Review: No Changes in Pt Med Stat, Meds/Allgs Chart Reviewed, Consent Obtained/Reviewed and Anes Risks/Benef Reviewed Patient Risk: Intermediate Procedure Risk: Low Assessment/Block/Sedation in SS: Assess/Block/Sedation-SS Anesthetic Plan Anesthetic Plan: MAC: and TIVA Disposition: Standard PACU
[2023-12-28 10:23] VITALS: BMI 22.6
[2023-12-28] MEDS: Lactated Ringers 1,000 ML 100 ML IVCONT (10:28)
[2023-12-28 10:35] VITALS: BP 144/99; PULSE 73; RESP 18; TEMP 36.8; O2SAT 100
--- NOTE | 2023-12-28 10:59 | MHC.SHP ---
Pre-Procedural Eval Section A - 24 Hr Update-Section A only Date of Service: 12/28/23 Section B - Complete if H&P > 30 days Chief Complaint: Benign neoplasm of colon,Nausea Relevant Family History (Specify if Yes): Yes Relevant Social History: None Present Medications: see Short Stay Collaborative assessment Medical History: Significant History (Loza's syndrome) History of Previous Operations: Relevant previous surgery/procedure and date(s) (History of esophagogastroduodenoscopy (EGD) Hx of colonoscopy Status post proctocolectomy History of removal of cyst History of prostatectomy) Allergies: Allergies Allergy/AdvReac Type Severity Reaction Status Date / Time No Known Allergies Allergy Verified 12/28/23 09:45 \ Review of Systems Sugical H&P ROS: Negative: Constitution, Cardiovascular, Respiratory, Neurological, Psychiatric, Hem-Onc, Allergic/Immunologic, Gastrointestinal, Genitourinary, Musculoskeletal, Integumentary, Endocrine and Eyes/Ears/Nose/Throat Exam Surgical H&P Exam: Normal: HEENT, Normal: Heart, Normal: Lungs, Normal: Extremities, Normal: Abdomen, Normal: Skin and Normal: Neurological Plan Diagnosis/Plan: Unchanged I have reviewed the history and physical and performed a pertinent physical examination on my patient. No changes have occurred unless specified. Time Spent With Patient Time: Total time managing care of this patient today ____ minutes.
--- NOTE | 2023-12-28 12:37 | W.PM.OPN ---
Operative Note Operative Note Date of Service: 12/28/23 Narrative: Operative Information Procedure Description: EGD, Sigmoidoscopy Indication: Loza Syndrome, hx of polyps Anesthesia: MAC FLEXIBLE TRANSORAL UPPER GASTROINTESTINAL ENDOSCOPY and Sigmoidoscopy Consent: Indications for the procedure and potential complications of bleeding, perforation, reaction to medications and missed diagnosis were discussed with the patient and informed consent was obtained. Instrument: Olympus GIF H 190 J mid size upper endoscope Monitoring: Vital signs and clinical assessment, continuous EKG monitoring, Pulse oximetry, Carbon Dioxide monitoring and blood pressure monitoring were done throughout the procedure. Procedure: The patient was placed in the left lateral decubitis position and pre-procedure medications were administered and a bite block was placed. The endoscope was inserted into the mouth and advanced under direct vision to the third part of duodenum. A careful inspection was made as the upper endoscope was withdrawn including a retroflexed examination of the proximal stomach; Findings and interventions are described below. Findings: Larynx:normal Esophagus: GE junction at 40 cm, diaphragm hiatus at 40 cm, normal Stomach: Fundic gland polyposis in the fundal area. Biopsies were obtained. Grade 2 flap valve on retroflexed examination of the cardia. Duodenum: 8-10 mm sessile polyp lesion removed with cold forceps Intervention: Biopsies as noted above SIGMOIDOSCOPY: Procedure: The patient was placed in the left lateral decubitis position and pre-procedure medications were administered. After a digital rectal examination of the ano-rectum, the video colonoscope was inserted into the rectum and advanced through the colon to the rectal anal pouch The colonoscope was slowly withdrawn in a retrograde panoramic fashion and the colon mucosa was carefully examined including a retroflexed view of the rectum. Findings and interventions are described below. Procedure Difficulty: easy Findings: congestion in rectal mucosa, few small polyps seesile appearing, 3-4 mm removed with cold forceps and another sessile polyp 5-6 mm removed with cold snare Impression and Post Procedure Diagnosis: Endoscopy Findings: fundic gland polyposis duodenal polyp Sigmoidoscopy Findings: rectal polyps Plan: Await Pathology results Repeat endoscopies in 1-2 years or earlier if clinically indicated Above findings were reviewed with the patient and relevant handouts were provided if indicated.
[2023-12-28 12:44] VITALS: BP 107/75; PULSE 82; RESP 14; TEMP 36.4; O2SAT 96
[2023-12-28 12:59] VITALS: BP 133/83; PULSE 78; RESP 18; O2SAT 97
[2023-12-28 13:09] VITALS: BP 141/91; PULSE 76; RESP 18; TEMP 36.8; O2SAT 98
== END 2023-12-28 13:41 | disposition home or self-care (01) ==
PROVIDERS: PCP Internal Medicine; Visit Provider Internal Medicine Gastroenterology
PROC: 0DJD8ZZ Inspection of Lower Intestinal Tract, Via Natural or Artificial Opening Endoscopic (ICD-10-PCS; CPT 45330; principal; 2023-12-28 11:40)
PROC: 0DJ08ZZ Inspection of Upper Intestinal Tract, Via Natural or Artificial Opening Endoscopic (ICD-10-PCS; CPT 43235; 2023-12-28 11:40)
DX: R11.0 Nausea (principal); D13.2 Benign neoplasm of duodenum; K31.7 Polyp of stomach and duodenum; D12.8 Benign neoplasm of rectum; K62.89 Other specified diseases of anus and rectum; Z86.010 Personal history of colon polyps; Q87.89 Other specified congenital malformation syndromes, not elsewhere classified; Z90.49 Acquired absence of other specified parts of digestive tract
CPT/HCPCS: 43239; 45338; 45331; 88305; 88313; 88342; J2704

== ENCOUNTER → 2023-12-28 09:05 | Outpatient (BNV) | payer OTHER, SELFPAY | PROVIDERS: PCP Internal Medicine; Visit Provider Internal Medicine Gastroenterology | DX: Z12.11 Encounter for screening for malignant neoplasm of colon (principal); Z86.010 Personal history of colon polyps; K31.7 Polyp of stomach and duodenum; D12.8 Benign neoplasm of rectum | CPT/HCPCS: 43239; 45331; 45338 ==

== ENCOUNTER 2024-02-23 08:21 | Outpatient (REF) | payer OTHER, SELFPAY ==
--- NOTE | ~2024-02-23 | US_ITS ---
EXAMINATION: US ABDOMEN LIMITED CLINICAL INFORMATION: Right upper quadrant pain. COMPARISON: Ultrasound abdomen 09/27/2023 and 11/29/2022. TECHNIQUE: Real-time imaging of the right upper quadrant abdominal viscera. Limited visualization due to bowel gas. FINDINGS: PANCREAS: Limited visualization of pancreatic tail and head. Imaged portion of pancreatic body is unremarkable. LIVER: Increased hepatic parenchymal heterogeneity and echogenicity could be associated with hepatocellular disease/hepatic steatosis and substantially limits visualization. Correlation with liver function tests and clinical exam recommended to determine further management. GALLBLADDER: Echogenic bile within the gallbladder. No gallbladder wall thickening. There is a 9 x 3 x 4 mm non-shadowing, echogenic lesion at the fundal aspect of the gallbladder which demonstrates internal vascularity. A similar lesion measured 8 x 3 x 4 mm on ultrasound of 09/27/2023 and 13 x 5 x 9 mm on ultrasound of 11/29/2022. This lesion was not appreciated on MRCP 2023. COMMON BILE DUCT: Normal in caliber measuring 0.39 cm in diameter. RIGHT KIDNEY: No hydronephrosis. No renal calculi. Limited visualization. The kidney measures 9.9 cm in maximum dimension. FREE FLUID: None. US/US abdomen limited IMPRESSION: Increased hepatic parenchymal heterogeneity and echogenicity could be associated with hepatocellular disease/hepatic steatosis and substantially limits visualization. Correlation with liver function tests and clinical exam recommended to determine further management. There is a 9 x 3 x 4 mm non-shadowing, echogenic lesion at the fundal aspect of the gallbladder which demonstrates internal vascularity. A similar lesion measured 8 x 3 x 4 mm on ultrasound of 09/27/2023 and 13 x 5 x 9 mm on ultrasound of 11/29/2022. This lesion was not appreciated on MRCP 2023. Surgical consultation recommended to determine further management..
== END 2024-02-23 08:22 | disposition home or self-care (01) ==
LOC: HO.HMGCX 08:21
PROVIDERS: PCP Internal Medicine; Visit Provider Physician Assistant
DX: R10.11 Right upper quadrant pain (principal); R93.5 Abnormal findings on diagnostic imaging of other abdominal regions, including retroperitoneum; K82.4 Cholesterolosis of gallbladder
CPT/HCPCS: 76700; 76705

== ENCOUNTER 2024-04-22 11:14 | Outpatient (REF) | payer OTHER, SELFPAY ==
--- NOTE | ~2024-04-22 | US_ITS ---
EXAMINATION: US SCROTUM CLINICAL INFORMATION: Hydrocele, unspecified. COMPARISON: Ultrasound scrotum September 27, 2023. TECHNIQUE: A sonogram of the scrotum was performed assessing gonzalez-scale appearance and color Doppler flow. Spectral Doppler analysis of the arterial and venous flow were performed in the testes bilaterally. FINDINGS: RIGHT: Right testicle measures 4.7 x 1.9 x 2.9 cm, volume 13.6 mL. Parenchymal echotexture is homogeneous. 7 mm hypoechoic lesion again demonstrated within the right testicle, nonspecific (previously 4 mm). This lesion demonstrates mild color Doppler flow. Spectral Doppler analysis of the arterial and venous flow is normal in the right testis. Right epididymal head is normal in size. There is a 3 cm cyst of the right epididymal head. No right varicocele is seen. Small right-sided hydrocele. LEFT: Left testicle measures 4.7 x 2.0 x 3.2 cm, volume 15.8 mL. Parenchymal echotexture is homogeneous. No focal testicular parenchymal lesions are visualized. Spectral Doppler analysis of the arterial and venous flow is normal in the left testis. Left epididymal head is normal in size. No left varicocele is seen. Small left-sided hydrocele. US/US scrotum IMPRESSION: 1. 7 mm hypoechoic lesion of the right testicle (previously 4 mm). This lesion demonstrates mild color Doppler flow. Neoplasm not excluded. Urology consultation recommended. 2. Small bilateral hydroceles. 3. 3 cm right epididymal head cyst. Electronically signed by: Miah Smith MD 05/11/2024 10:02 AM EDT
== END 2024-04-22 11:15 | disposition home or self-care (01) ==
LOC: HO.HMGCX 11:14
PROVIDERS: Visit Provider Nurse Practitioner Family
DX: N43.3 Hydrocele, unspecified (principal); N50.89 Other specified disorders of the male genital organs
CPT/HCPCS: 76870

== ENCOUNTER 2024-06-13 09:38 | Outpatient (AMB) | payer OTHER, SELFPAY ==
--- NOTE | 2024-06-13 09:39 | MHC.OFFVIS ---
Intake Visit Reasons: 6m/US(set) Intake Note: Patient presents today for follow up on:hydrocele and ultrasound results Imaging Completed: 04/22/24 Urology Medications: none Blood Thinner: none Adjunct Professor Of Voice Required: No Steel Rule Inspector: Steel Rule Inspector offered & declined Accompanied by: Self / Same As Patient Allergies No Known Allergies Allergy (Verified 06/13/24 10:06) Medication List - Last Reconciled 06/13/24 by ROSALIA Raygoza No Known Home Meds HPI Comments Details: Chang Rodríguez is a pleasant 39-year-old male patient of Dr. Dowling. 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 He presents to the office today for a follow-up of his right-sided scrotal lump/lesion. In discussion with the patient today reports to be doing and feeling well. He reports no bothersome urinary issues or concerns since his last office visit here 6 months ago. Recent scrotal surveillance monitoring u/s results reviewed with the patient today. 7 mm hyperechoic lesion of the right testicle (previously 4 mm) this lesion demonstrates mild color Doppler flow. Neoplasm not excluded. Small bilateral hydroceles. 3 mm right epididymal head cyst. In assessment of the patient today the penis is uncircumcised very calcified area palpated to the anterior portion of the right testicle. Dr. Hernandez in to evaluate patient as well. No open areas, lesions, and or masses palpated within the area. We discussed continuation of surveillance monitoring at this time. Previous workup has included labs as noted and trended below. 11/04--lactate dehydrogenase 327, alpha fetoprotein 4.5, tumor marker HCG < 5. He denies any bothersome urinary issues or concerns. He denies pain. Discussed surveillance monitoring. He denies urinary urgency, urinary frequency, incontinence, nocturia, hematuria, dysuria, foul smelling urine, changes to urinary stream, flank pain, fever, and or chills. He is happy with his current voiding parameters. COUNT INCLUDES THE [facility] Medical History Loza's syndrome Surgical History History of esophagogastroduodenoscopy (EGD) Hx of colonoscopy Status post proctocolectomy History of removal of cyst History of prostatectomy Family History Father Colon cancer Paternal Grandmother Colon cancer Social History Household Members Other:: single- lives with mom Housing: Apartment Patient Tobacco Use Status: Never used Tobacco e-Cigarette/Vaping Use: Never Used Current occupational status: employed Current occupation: [employer] Cognitive needs: No Hearing needs: No Vision needs: Yes Review of Systems Const Reports no additional complaints Eyes Reports no additional complaints ENT Reports no additional complaints Card Reports no additional complaints Resp Reports no additional complaints GI Reports as per HPI Reports as per HPI Musc Reports no additional complaints Neuro Reports no additional complaints Psych Reports no additional complaints Physical Exam Const General: cooperative, comfortable, no acute distress, well developed, alert and awake Nutritional Appearance: thin Orientation/consciousness: patient oriented x3 Limitations: no limitations HEENT Head: Yes normal to inspection, Yes normocephalic and Yes atraumatic Ears: hearing grossly normal bilaterally Eyes General: appearance normal, both eyes and all related structures Neck Neck: Yes normal visual inspection and Yes trachea midline Chest Chest palpation & inspection: normal inspection of the chest Resp Effort & Inspection: normal respiratory effort and able to speak in complete sentences Cardio Rate: regular rate GI Inspection: Yes normal to inspection Other: as per HPI General: Yes no CVA tenderness Penis: normal penis and uncircumcised Meatus: meatus normal Back/Spine/Pelvis Back: no CVA tenderness Skin General skin exam: no rashes or lesions noted Neuro General: patient oriented x3 Extrem General: Yes normal to inspection Psych Appearance: grossly normal and well kempt Mental Status: mental status grossly normal Speech and movement: Normal speech and movement present and Clear speech present Affect: normal affect Attitude: cooperative Thought process: Normal thought process present Thought content: Normal thought content present Insight: Fair insight present (Psych) Judgement: Fair judgement present (Psych) Results AMB Urinalysis, Automated UA Leukoctes 0 Asim/uL Last Edit by Althea Panchal on 06/13/24 09:56 UA Nitrite Last Edit by Althea Panchal on 06/13/24 09:56 UA Urobilinogen 0.2 mg/dL Last Edit by Althea Panchal on 06/13/24 09:56 UA Protein 0 mg/dL Last Edit by Althea Panchal on 06/13/24 09:56 UA pH 6.0 Last Edit by Althea Panchal on 06/13/24 09:56 UA Blood 10 Mathieu/uL Last Edit by Althea Panchal on 06/13/24 09:56 UA Specific [place] 1.015 Last Edit by Althea Panchal on 06/13/24 09:56 UA Ketone Last Edit by Althea Afshanalessandra on 06/13/24 09:56 UA Bilirubin 0 mg/dL Last Edit by Althea Panchal on 06/13/24 09:56 UA Glucose 0 mg/dL Last Edit by Althea Afshanalessandra on 06/13/24 09:56 Results Reviewed Results Reviewed: Date of Service: 04/22/24 EXAMINATION: US SCROTUM FINDINGS: RIGHT: Right testicle measures 4.7 x 1.9 x 2.9 cm, volume 13.6 mL. Parenchymal echotexture is homogeneous. 7 mm hypoechoic lesion again demonstrated within the right testicle, nonspecific (previously 4 mm). This lesion demonstrates mild color Doppler flow. Spectral Doppler analysis of the arterial and venous flow is normal in the right testis. Right epididymal head is normal in size. There is a 3 cm cyst of the right epididymal head. No right varicocele is seen. Small right-sided hydrocele. LEFT: Left testicle measures 4.7 x 2.0 x 3.2 cm, volume 15.8 mL. Parenchymal echotexture is homogeneous. No focal testicular parenchymal lesions are visualized. Spectral Doppler analysis of the arterial and venous flow is normal in the left testis. Left epididymal head is normal in size. No left varicocele is seen. Small left-sided hydrocele. IMPRESSION: 1. 7 mm hypoechoic lesion of the right testicle (previously 4 mm). This lesion demonstrates mild color Doppler flow. Neoplasm not excluded. Urology consultation recommended. 2. Small bilateral hydroceles. 3. 3 cm right epididymal head cyst. Assessment & Plan Assessment & Plan (1) Lump in scrotum: Code(s): N50.89 - Other specified disorders of the male genital organs Category: Medical (2) Hydrocele of testis: Code(s): N43.3 - Hydrocele, unspecified Category: Medical Plan In office urinalysis results reviewed with the patient today; as noted above. Recent scrotal ultrasound results reviewed with the patient today; as noted above. Discussed at length potential causes of hydroceles. Patient currently denies any bothersome urinary issues or concerns. He is happy with his current voiding parameters. Will continue with surveillance monitoring at this time Scrotal ultrasound in 1 year Follow-up in 1 year with imaging to be completed prior; or sooner with any issues, concerns, and or questions. Orders: Orders AMB Urinalysis Automated Today Z13.9 - Encounter for screening, unspecified US scrotum Today N50.89 - Other specified disorders of the male genital organs Patient Instructions: The patient had an opportunity to ask questions regarding the treatment plan. All questions were answered. Physical exam, labs, and imaging were discussed and reviewed in detail. As well as risks, benefits, and discussion of treatment choices. No major barriers to understanding were identified. The patient expressed understanding and agreement with the above treatment plan. The patient was made aware they should contact our office by phone for worsening of their current condition, the appearance of new symptoms, or with any questions or concerns. Compliance is encouraged with any medications and follow up testing that is ordered. It is a privilege to be allowed the opportunity to participate in? your urological care.? Again, if you have any questions or concerns If you have any questions or concerns please do not hesitate to contact me. The office is [phone]. This note is constructed using voice recognition software. While every effort has been made to ensure accuracy supervisor refractory products errors may have been included. Yours sincerely, ROSALIA Raygoza Coding Level of Care Code Est Pt Level 3 (27240) Diagnoses Lump in scrotum N50.89 Hydrocele of testis N43.3
== END 2024-06-13 10:06 | disposition home or self-care (01) ==
PROVIDERS: PCP Internal Medicine; Visit Provider Nurse Practitioner Family
DX: N50.89 Other specified disorders of the male genital organs (principal); N43.3 Hydrocele, unspecified; Z13.9 Encounter for screening, unspecified
CPT/HCPCS: 99213

== ENCOUNTER → 2024-06-13 09:38 | Outpatient (BNVA) | payer OTHER, SELFPAY | PROVIDERS: PCP Internal Medicine; Visit Provider Nurse Practitioner Family | DX: N50.89 Other specified disorders of the male genital organs (principal); N43.3 Hydrocele, unspecified | CPT/HCPCS: 81003 ==

== ENCOUNTER 2024-07-05 12:20 | Outpatient (AMB) | payer OTHER, SELFPAY ==
[2024-07-05 12:21] VITALS: BP 146/98; PULSE 77; O2SAT 98; BMI 24.0
--- NOTE | 2024-07-05 12:21 | A.OFFPC_ITS ---
Vital Signs 07/05/24 12:21 Height 5 ft 6 in Weight 149 lb BMI 24.0 BP 146/98 H Blood Pressure Location Rt brachial Position Sitting Pulse 77 Pulse Source Pulse Oximeter Pulse Oximetry (%) 98 Oxygen Delivery Method Room Air Intake Visit Reasons: Regular Visit Allergies No Known Allergies Allergy (Verified 07/05/24 12:21) Medication List - Last Reconciled 07/05/24 by Maynor Dowling MD No Known Home Meds Tobacco use date assessed: 07/05/24 Dental Screening Dental Screen Date: 07/05/24 Did you have a dental visit in the last 12 months?: Yes Did you have a dental problem in the last 6 months where you did not have access to dental care?: No Was dental information given to patient?: Patient has dentist HPI Regular Visit HPI Details Patient is a 39-year-old gentleman came in today to be evaluated for hypertension Patient has been monitoring his blood pressure at home and it has been running high above 140 systolic He also admit to feeling stress at work 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 [employer] At time he also feels as if he has to catch his breath and feels pressure in his chest Which only last few seconds At this time patient has no symptoms In the morning sometimes wake up with a headache We did the EKG today which shows sinus rhythm, no signs of ischemia but there are signs of LVH I have ordered echocardiogram for that reason New set of lab order placed to be done today I am starting him on atenolol 25 mg Patient is to continue monitoring his blood pressure at home and keep a log Follow-up 3 weeks [facility] Medical History Loza's syndrome Surgical History History of esophagogastroduodenoscopy (EGD) Hx of colonoscopy Status post proctocolectomy History of removal of cyst History of prostatectomy Family History Father Colon cancer Paternal Grandmother Colon cancer Social History Household Members Other:: single- lives with mom Housing: Apartment Patient Tobacco Use Status: Never used Tobacco e-Cigarette/Vaping Use: Never Used service: No Current occupational status: employed Current occupation: [employer] Cognitive needs: No Hearing needs: No Vision needs: Yes Questionnaire PHQ-9 Over the last 2 weeks, how often have you been bothered by any of the following problems? 1. Little interest or pleasure in doing things: not at all 2. Feeling down, depressed, or hopeless: not at all 3. Trouble falling or staying asleep, or sleeping too much: not at all 4. Feeling tired or having little energy: not at all 5. Poor appetite or overeating: not at all 6. Feeling bad about yourself - or that you are a failure or have let yourself or your family down: not at all 7. Trouble concentrating on things, such as reading the newspaper or watching television: not at all 8. Moving or speaking so slowly that other people could have noticed. Or the opposite - being so fidgety or restless that you have been moving around a lot more than usual: not at all 9. Thoughts that you would be better off or of hurting yourself in some way: not at all Total score: 0 Depression Screening Interpretation: Negative Depression Screening Done: Yes 03496 - PHQ-9 Billing: Yes Source: Developed by Drs. Davonte Nix, Meredith Corcoran, Donavan Hammond and colleagues, with an educational romulo from [employer]. Thrive Questionnaire Date Thrive assessed: 07/05/24 I am a: Patient What is your living situation today?: I have a steady place to live Within the past 12 months, did the food you bought not last and you didn't have the money to get more?: Never true Within the past 12 months, did you worry whether your food would run out before you got money to buy more?: Never true Do you have trouble paying for medicines?: No Do you have trouble getting transportation to medical appointments?: No Do you have trouble paying your heating and electricity bill?: No Do you have trouble taking care of your child, family member or friend?: No Do you have trouble with day-to-day activities such as bathing, preparing meals, shopping, managing finances, etc.?: No Are you currently unemployed and looking for a job?: No Are you interested in more education?: No Please select the resources that you would like help with: None Currently or been in a relationship where the following occur: No concerns reported THRIVE Score: 0 AUDIT C Alcohol Use Questionnaire (AUDIT-C) 1. How often do you have a drink containing alcohol?: Monthly or less 2. How many drinks containing alcohol do you have on a typical day when you are drinking?: 1 or 2 3. How often do you have six or more drinks on one occasion?: Never Total Score: 1 Score Reviewed/Action Taken: Yes JACKIE-7 AMB Questionnaire JACKIE-7 Date JACKIE - 7 assessed: 07/05/24 Feeling nervous, anxious, or on edge: 3 = Nearly every day Not being able to stop or control worryin = Nearly every day Worrying too much about different things: 2 = More than half the days Trouble relaxin = More than half the days Being so restless that it is hard to sit still: 2 = More than half the days Becoming easily annoyed or irritable: 2 = More than half the days Feeling afraid as if something awful might happen: 0 = Not at all Total JACKIE-7 score (0-4 normal; 5-9 mild; 10-14 moderate; 15-21 severe): 14 Source: Developed by Drs. Davonte Nix, Meredith Corcoran, Donavan Hammond and colleagues, with an educational romulo from [employer]. JACKIE-7 Assessment Billing JACKIE-7 Assessment Tool: JACKIE-7 Assessment 16066 Review of Systems Const Denies chills and Denies fever(s) ENT Denies epistaxis and Denies nasal discharge Resp Denies chest congestion, Denies cough and Denies hemoptysis GI Denies diarrhea and Denies nausea Skin/Breast Denies rash Neuro Reports no additional complaints Psych Reports no additional complaints Endo Reports no additional complaints Physical exam (Primary Care) Vital Signs: Last Vital Signs Pulse 77 07/05/24 12:21 BP 146/98 H 07/05/24 12:21 Pulse Ox 98 07/05/24 12:21 Oxygen Delivery Method Room Air 07/05/24 12:21 BMI result Body Mass Index 24.0 Tobacco/Smoking Status: Tobacco use Status Tobacco use date assessed 07/05/24 07/05/24 12:24 Patient Tobacco Use Status Never used Tobacco 07/05/24 12:24 e-Cigarette/Vaping Use Never Used 07/05/24 12:24 PHQ-9: PHQ-9 Score PHQ-9: Total score 0 07/05/24 12:41 Depression Screening Interpretation: Negative Thrive Assessment: Date of Thrive Assessment Date Thrive assessed 07/05/24 07/05/24 12:24 Currently or been in a relationship where the following occur: No concerns reported Const General: cooperative, comfortable and no acute distress Orientation/consciousness: patient oriented x3 HENMT Head: Yes normocephalic Eyes General: appearance normal, both eyes and all related structures Neck Neck: Yes supple Resp Effort & Inspection: normal respiratory effort, no cough and no stridor Cardio Rhythm: regular rhythm Heart sounds: S1 normal heart sound present and S2 normal heart sound present Skin General skin exam: turgor normal Neuro General: patient oriented x3, tone normal and moves all extremities Extrem Right lower extremity: no edema Left lower extremity: no edema Office Procedures EKG [id number], Complete Coding Level of Care Code Est Pt Level 4 (03131) Diagnoses Elevated blood pressure reading R03.0 Shortness of breath R06.02 Chest pressure R07.89 Stress at work Z56.6 LVH (left ventricular hypertrophy) I51.7 CPT Codes EKG - CPT: 19749-[id number], Complete ([id number]) Additional Codes JACKIE-7 Assessment Billing - JACKIE-7 Assessment Tool: JACKIE-7 Assessment 51888 ([id number]) Assessment & Plan Assessment & Plan (1) Elevated blood pressure reading: Code(s): R03.0 - Elevated blood-pressure reading, without diagnosis of hypertension Category: Medical (2) Shortness of breath: Code(s): R06.02 - Shortness of breath Category: Medical (3) Chest pressure: Code(s): R07.89 - Other chest pain Category: Medical (4) Stress at work: Code(s): Z56.6 - Other physical and mental strain related to work Category: Social Hx (5) LVH (left ventricular hypertrophy): Code(s): I51.7 - Cardiomegaly Category: Medical Plan Patient is a 39-year-old gentleman came in today to be evaluated for hypertension Patient has been monitoring his blood pressure at home and it has been running high above 140 systolic He also admit to feeling 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 Panel Today R03.0 - Elevated blood-pressure reading, without diagnosis of hypertension, R06.02 - Shortness of breath, R07.89 - Other chest pain, Z56.6 - Other physical and mental strain related to work LDL Cholesterol Direct Today R03.0 - Elevated blood-pressure reading, without diagnosis of hypertension, R06.02 - Shortness of breath, R07.89 - Other chest pain, Z56.6 - Other physical and mental strain related to work TSH reflex Free T4 Today R03.0 - Elevated blood-pressure reading, without diagnosis of hypertension, R06.02 - Shortness of breath, R07.89 - Other chest pain, Z56.6 - Other physical and mental strain related to work CA echo transthoracic complete Today I51.7 - Cardiomegaly, R03.0 - Elevated blood-pressure reading, without diagnosis of hypertension, R07.89 - Other chest pain Complete Blood Count Auto Diff Today R03.0 - Elevated blood-pressure reading, without diagnosis of hypertension, R06.02 - Shortness of breath, R07.89 - Other chest pain, Z56.6 - Other physical and mental strain related to work AMB EKG-In Office Today Z13.6 - Encounter for screening for cardiovascular disorders Medications: New atenolol 25 mg PO DAILY 30 tabs 0RF
== END 2024-07-05 12:53 | disposition home or self-care (01) ==
PROVIDERS: PCP Internal Medicine; Visit Provider Internal Medicine
DX: R03.0 Elevated blood-pressure reading, without diagnosis of hypertension (principal); R06.02 Shortness of breath; R07.89 Other chest pain; Z56.6 Other physical and mental strain related to work; I51.7 Cardiomegaly

== ENCOUNTER → 2024-07-05 12:20 | Outpatient (BNVA) | payer OTHER, SELFPAY | PROVIDERS: PCP Internal Medicine; Visit Provider Internal Medicine | DX: R03.0 Elevated blood-pressure reading, without diagnosis of hypertension (principal); R06.02 Shortness of breath; R07.89 Other chest pain; I51.7 Cardiomegaly; Z56.6 Other physical and mental strain related to work | CPT/HCPCS: 93005; 96127 ==

== ENCOUNTER 2024-07-19 09:19 | Outpatient (AMB) | payer OTHER, SELFPAY ==
[2024-07-19 09:21] VITALS: BP 126/88; PULSE 78; O2SAT 96; BMI 23.8
--- NOTE | 2024-07-19 09:21 | MHC.PC.OV ---
Vital Signs 07/19/24 09:21 Height 5 ft 6 in Weight 147 lb 8 oz BMI 23.8 BP 126/88 Blood Pressure Location Lt brachial Position Sitting Pulse 78 Pulse Source Pulse Oximeter Pulse Oximetry (%) 96 Oxygen Delivery Method Room Air Intake Visit Reasons: 3 weeks follow up Allergies No Known Allergies Allergy (Verified 07/19/24 09:21) Medication List - Last Reconciled 07/19/24 by Maynor Dowling MD atenolol 25 mg PO DAILY Tobacco use date assessed: 07/19/24 Dental Screening Dental Screen Date: 07/19/24 Did you have a dental visit in the last 12 months?: Yes Did you have a dental problem in the last 6 months where you did not have access to dental care?: No Was dental information given to patient?: Patient has dentist HPI 3 weeks follow up HPI Details Patient came in today for his three-month follow-up appointment on blood pressure and chest pressure He was started on atenolol 25 mg He is tolerating medication, feeling much better blood pressure has gone down But I see that at home it is still running in 130s and 140s His chest pressure has resolved Headaches are better He has a echocardiogram appointment coming up this month Forgot to do labs, he will do them today He is to continue with atenolol 25 mg At home his heart rate is running in 60s so I will not be increasing the dose He will send me a message in 2 weeks with further readings from home At that point we will also review his echocardiogram and make further decision [facility] Medical History Loza's syndrome Surgical History History of esophagogastroduodenoscopy (EGD) Hx of colonoscopy Status post proctocolectomy History of removal of cyst History of prostatectomy Family History Father Colon cancer Paternal Grandmother Colon cancer Social History Household Members Other:: single- lives with mom Housing: Apartment Patient Tobacco Use Status: Never used Tobacco e-Cigarette/Vaping Use: Never Used service: No Current occupational status: employed Current occupation: [employer] Cognitive needs: No Hearing needs: No Vision needs: Yes Questionnaire Thrive Questionnaire Date Thrive assessed: 07/19/24 I am a: Patient What is your living situation today?: I have a steady place to live Within the past 12 months, did the food you bought not last and you didn't have the money to get more?: Never true Within the past 12 months, did you worry whether your food would run out before you got money to buy more?: Never true Do you have trouble paying for medicines?: No Do you have trouble getting transportation to medical appointments?: No Do you have trouble paying your heating and electricity bill?: No Do you have trouble taking care of your child, family member or friend?: No Do you have trouble with day-to-day activities such as bathing, preparing meals, shopping, managing finances, etc.?: No Are you currently unemployed and looking for a job?: No Are you interested in more education?: No Please select the resources that you would like help with: None Currently or been in a relationship where the following occur: No concerns reported THRIVE Score: 0 AUDIT C Alcohol Use Questionnaire (AUDIT-C) 1. How often do you have a drink containing alcohol?: Monthly or less 2. How many drinks containing alcohol do you have on a typical day when you are drinking?: 1 or 2 3. How often do you have six or more drinks on one occasion?: Never Total Score: 1 Score Reviewed/Action Taken: Yes JACKIE-7 AMB Questionnaire JACKIE-7 Date JACKIE - 7 assessed: 07/05/24 Source: Developed by Drs. Davonte Nix, Meredith Corcoran, Donavan Hammond and colleagues, with an educational romulo from [employer] Review of Systems Const Denies chills and Denies fever(s) ENT Denies epistaxis and Denies nasal discharge Card Denies chest pain Resp Denies chest congestion, Denies cough and Denies hemoptysis GI Denies diarrhea and Denies nausea Skin/Breast Denies rash Neuro Reports no additional complaints Psych Reports no additional complaints Endo Reports no additional complaints Physical exam (Primary Care) Vital Signs: Last Vital Signs Pulse 78 07/19/24 09:21 BP 126/88 07/19/24 09:21 Pulse Ox 96 07/19/24 09:21 Oxygen Delivery Method Room Air 11/08/24 09:21 BMI result Body Mass Index 23.8 Tobacco/Smoking Status: Tobacco use Status Tobacco use date assessed 07/19/24 07/19/24 09:23 Patient Tobacco Use Status Never used Tobacco 07/19/24 09:23 e-Cigarette/Vaping Use Never Used 07/19/24 09:23 Thrive Assessment: Date of Thrive Assessment Date Thrive assessed 07/19/24 07/19/24 09:23 Currently or been in a relationship where the following occur: No concerns reported Const General: cooperative, comfortable and no acute distress Orientation/consciousness: patient oriented x3 HENMT Head: Yes normocephalic Eyes General: appearance normal, both eyes and all related structures Neck Neck: Yes supple Resp Effort & Inspection: normal respiratory effort, no cough and no stridor Cardio Rhythm: regular rhythm Heart sounds: S1 normal heart sound present and S2 normal heart sound present Skin General skin exam: turgor normal Neuro General: patient oriented x3, tone normal and moves all extremities Extrem Right lower extremity: no edema Left lower extremity: no edema Coding Level of Care Code Est Pt Level 3 (68701) Diagnoses Hypertension, essential I10 LVH (left ventricular hypertrophy) I51.7 Assessment & Plan Assessment & Plan (1) Hypertension, essential: Code(s): I10 - Essential (primary) hypertension Category: Medical (2) LVH (left ventricular hypertrophy): Code(s): I51.7 - Cardiomegaly Category: Medical Plan Patient came in today for his three-month follow-up appointment on blood pressure and chest pressure He was started on atenolol 25 mg He is tolerating medication, feeling much better blood pressure has gone down But I see that at home it is still running in 130s and 140s His chest pressure has resolved Headaches are better He has a echocardiogram appointment coming up this month Forgot to do labs, he will do them today He is to continue with atenolol 25 mg At home his heart rate is running in 60s so I will not be increasing the dose He will send me a message in 2 weeks with further readings from home At that point we will also review his echocardiogram and make further decision Medications: Refilled atenolol 25 mg PO DAILY 90 tabs 0RF
== END 2024-07-19 10:19 | disposition home or self-care (01) ==
PROVIDERS: PCP Internal Medicine; Visit Provider Internal Medicine
DX: I10 Essential (primary) hypertension (principal); I51.7 Cardiomegaly

== ENCOUNTER 2024-07-19 09:19 | Outpatient (REF) | payer OTHER, SELFPAY ==
[2024-07-19 13:14] LABS: MANUAL DIFF FLAG NO
[2024-07-19 13:18] LABS: Basophils Absolute Auto 0.1 X10*3/uL (0.0-0.2); Basophils Percent Auto 0.7 % (0-2); Eosinophils Absolute Auto 0.2 X10*3/uL (0.0-0.4); Eosinophils Percent Auto 2.4 % (0-4); Hematocrit 46.8 % (42.0-52.0); Hemoglobin 16.1 g/dl (14.0-18.0); Imm Gran Abs Auto 0.03 X10*3/uL (0.00-0.03); Imm Gran Pct Auto 0.4 % (0.0-0.4); Lymphocytes Absolute Auto 1.7 X10*3/uL (1.2-4.9); Lymphocytes Percent Auto 21.7 % (20-40); Mean Corpuscular HGB Conc 34.4 g/dl (31.0-36.0); Mean Corpuscular Hemoglobin 31.6 pg (27.0-33.0); Mean Corpuscular Volume 91.8 fL (80.0-98.0); Mean Platelet Volume 11.1 fL (9.4-12.4); Monocytes Absolute Auto 0.9 X10*3/uL (0.1-1.2); Monocytes Percent Auto 11.2 % (2-11); Neutrophils Absolute Auto 4.8 x10*3/uL (2.0-8.3); Neutrophils Percent Auto 63.6 % (45-73); Platelet Count 325 X10*3/uL (160-400); Red Cell Distribution Width 12.1 % (11.0-16.0); White Blood Count 7.6 X10*3/uL (4.8-10.8)
[2024-07-19 13:57] LABS: Alanine Aminotransferase 52 U/L (0-40); Albumin Level 4.5 g/dL (3.5-5.0); Alkaline Phosphatase 57 U/L (39-117); Anion Gap 15 (12-20); Aspartate Amino Transferase 36 U/L (5-37); Bilirubin Total 1.9 mg/dL (0.0-1.0); Blood Urea Nitrogen 22 mg/dL (9-16); Calcium 9.7 mg/dL (8.4-10.2); Carbon Dioxide 24 mmol/L (22-29); Chloride 107 mmol/L (96-108); Estimated Glomerular Filt Rate > 60; Glucose Random 121 mg/dL (60-115); Potassium 4.2 mmol/L (3.3-5.1); Sodium 142 mmol/L (135-145); Total Protein 7.3 g/dL (6.5-8.0)
[2024-07-19 14:03] LABS: TSH reflex Free T4 0.96 uIU/mL (0.32-4.0)
[2024-07-21 11:03] LABS: LDL Cholesterol Direct 90 mg/dL (<100)
== END 2024-07-19 09:20 | disposition home or self-care (01) ==
LOC: HO.HMGCLDS 09:19
PROVIDERS: PCP Internal Medicine; Visit Provider Internal Medicine
DX: R03.0 Elevated blood-pressure reading, without diagnosis of hypertension (principal); R06.02 Shortness of breath; R07.89 Other chest pain; Z56.6 Other physical and mental strain related to work
CPT/HCPCS: 36415; 80053; 83721; 84443; 85025

== ENCOUNTER → 2024-08-01 07:32 | Outpatient (REF) | payer OTHER, SELFPAY ==
--- NOTE | 2024-08-01 07:36 | CA_ITS ---
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 The visually estimated ejection fraction is between 65-70%. Spectral Doppler is indicative of a normal filling pattern. Right Ventricle Normal right ventricular cavity size and systolic function. Atria Both atria are normal in size. There is lipomatous hypertrophy of the interatrial septum. There is no evidence of interatrial shunt. Aortic Valve Normal aortic valve structure and function. There is no aortic valve stenosis. There is no aortic valve regurgitation. Mitral Valve Normal mitral valve structure and function. There is trace mitral valve regurgitation. There is no mitral valve stenosis. Pulmonic Valve The pulmonic valve is likely normal. There is trace pulmonic valve regurgitation. Tricuspid Valve Likely normal tricuspid valve structure and function. Tricuspid regurgitation envelope is inadequate for calculation of right ventricular systolic pressure. Normal right atrial pressure. Great Vessels All visible segments of the aorta are normal in size. The pulmonary artery was not well visualized. Venous The inferior vena cava is normal in size and collapses greater than 50% with inspiration. Pericardium/Pleural There is no evidence of pericardial effusion. Prior Study Comparison No prior study available for comparison. Measurements 2D Linear Measurements IVSd: 1.17 0.6-0.9/0.6-1.0 cm LVIDd: 4.13 3.9-5.3/4.2-5.9 cm LVIDd Index: 2.36 2.4-3.2/2.2-3.1 cm/m2 LVIDs: 2.46 2.0-3.6 cm LVPWd: 0.77 0.7-1.1 cm LA Diam: 2.80 2.7-3.8/3.0-4.0 cm LAIDs Index: 1.60 1.5-2.3 cm/m2 LV Mass: 159.22 67-162/88-224 g LV Mass Index: 90.98 43-95/49-115 g/m2 LVOT Diam: 2.10 3.0+(-)1.3 cm 2D Systolic Function EF 4C: 71.60 >55% EF 2C: 65.50 >55% EF BiP: 68.10 >55% Mitral Valve MV Pk E: 0.91 MV PK A: 0.45 MV Decel Time: 176.00 E/A: 2.00 E'Lateral: 8.70 E'Medial: 8.27 E/E' Med: 11.00 E/E' Lat: 10.40 PHT: 52.00 MVA PHT: 4.23 Decel [place]: 5.14 Aortic Valve AoV Pk José Miguel: 1.28 AoV Pk Grad: 7.00 ANTONELLA: 3.46 LVOT LVOT Pk José Miguel: 1.28 LVOT Mn José Miguel: 0.90 LVOT VTI: 0.26 LVOT Pk Grad: 7.00 LVOT Mn Grad: 4.00 LVOT Diam: 2.10 LVOT Area: 3.46 Diastolic Function MV Pk E: 0.91 MV Pk A: 0.45 E/A: 2.00 E'Medial: 8.27 E/E' Med: 11.00 E' Laterial: 8.70 E/E' Lat: 10.40 Right Ventricle TAPSE (mm): 22.20 TVS' José Miguel: 12.90 Tricuspid Valve RA Press: 3.00 Great Vessels Aorta Sinus of Valsalva: 3.60 2.0-3.5 cm Ao Asc: 3.60 2.1-3.4 cm Ao Arch: 2.60 Pulmonary Valve PV Pk José Miguel: 0.75 Peak PV Grad: 2.00 Updated in Other Vendor System with Status of Final Catracho Castillo MD electronically signed on 08/02/2024 8:54:15 AM with status of Final
== END ==
LOC: HO.CARD 07:32
PROVIDERS: PCP Internal Medicine; Visit Provider Internal Medicine
DX: R07.89 Other chest pain (principal); R03.0 Elevated blood-pressure reading, without diagnosis of hypertension; I51.7 Cardiomegaly
CPT/HCPCS: 93306

== ENCOUNTER → 2024-08-01 07:36 | Outpatient (BNV) | payer OTHER, SELFPAY | PROVIDERS: PCP Internal Medicine; Visit Provider Internal Medicine Cardiovascular Disease | DX: I51.7 Cardiomegaly (principal) | CPT/HCPCS: 93306 ==

== ENCOUNTER 2024-08-19 07:45 | Outpatient (AMB) | payer OTHER, SELFPAY ==
--- NOTE | 2024-08-19 07:50 | A.OFFVIS_ITS ---
Vital Signs 08/19/24 07:55 Height 5 ft 6 in Weight 143 lb 4.807 oz BMI 23.1 BP 114/80 Blood Pressure Location Lt brachial Position Sitting Pulse 55 Intake Visit Reasons: s/p double Intake Note: Chang presents in the office as a follow up EGD and COLO. CC: He states that he is not having any concerns today just here for results. Roller Inspector Required: No Allergies No Known Allergies Allergy (Verified 08/19/24 07:58) HPI HPI s/p double: Details: 38-year-old male with Loza's s/p total colectomy-her for f/u RECAP: 01/02 EGD/sigmoidoscopy: Endoscopy Findings: fundic gland polyposis duodenal polyp Sigmoidoscopy Findings: rectal polyps Path: tubular adenoma duodenum colon tubular adenomas LGD in fundic gland polyps US: 03/04- echogenic lesion GB< steatosis of liver, mild elevated lft MRCP: nml GB INTERIM: doing well no abdominal pain no bowel irregularities no weight loss no skin lesions EXAM: GENERAL: The patient is well developed and nontoxic, slightly dysmorphic features VITAL SIGNS:see workflow HEENT: Nonicteric sclerae, PERRLA, EOMI. Oropharynx clear. Moist mucous membranes. Conjunctivae appear well perfused. No thyroid mass. CHEST: Chest wall is nontender. HEART: Regular rate and rhythm without murmurs. LUNGS: Clear to auscultation bilaterally. ABDOMEN: Soft, positive bowel sounds, nontender, no organomegaly.no flank tenderness SKIN: No rash, no excessive bruising, petechiae, or purpura. NEUROLOGIC: Cranial nerves II-XII intact without motor/sensory deficit. Psych: normal affect A/P: 1/ LGD and fundic gland polyps 2/ duodenal adenoma 3/ colonic adenomas 4/ Loza syndrome causing above, can also be assoc with thyroid and liver disease, malignancies PLAN: 1/ repeat EGD and sigmoid 01/03 2/ use side viewer scope 3/ MRI with and without contrast, \ 4/ periodic TSH, US thyroid PFS Medical History Loza's syndrome Surgical History History of esophagogastroduodenoscopy (EGD) Hx of colonoscopy Status post proctocolectomy History of removal of cyst History of prostatectomy Family History Father Colon cancer Paternal Grandmother Colon cancer Social History Household Members Other:: single- lives with mom Housing: Apartment Patient Tobacco Use Status: Never used Tobacco e-Cigarette/Vaping Use: Never Used service: No Current occupational status: employed Current occupation: [employer] Cognitive needs: No Hearing needs: No Vision needs: Yes Physical Exam Vital Signs: Last Vital Signs Pulse 55 08/19/24 07:55 BP 114/80 08/19/24 07:55 BMI result Body Mass Index 23.1 Assessment & Plan Assessment & Plan (1) Loza's syndrome: Comment: And due for 1 year repeat endoscopy Code(s): Q87.89 - Other specified congenital malformation syndromes, not elsewhere classified Category: Medical Plan: see above Coding Level of Care Code Est Pt Level 4 (54471) Diagnoses Loza's syndrome Q87.89
[2024-08-19 07:55] VITALS: BP 114/80; PULSE 55; BMI 23.1
== END 2024-08-19 08:09 | disposition home or self-care (01) ==
PROVIDERS: PCP Internal Medicine; Visit Provider Internal Medicine Gastroenterology
DX: Q87.89 Other specified congenital malformation syndromes, not elsewhere classified (principal)
CPT/HCPCS: 99214

== ENCOUNTER 2024-08-23 08:23 | Outpatient (REF) | payer OTHER, SELFPAY ==
[2024-08-23] MEDS: gadobutroL 7.5 ML VIAL IVPUSH (09:36)
== END 2024-08-23 08:24 | disposition home or self-care (01) ==
LOC: HO.MRI 08:23
PROVIDERS: PCP Internal Medicine; Visit Provider Internal Medicine Gastroenterology
DX: Q87.89 Other specified congenital malformation syndromes, not elsewhere classified (principal); K82.4 Cholesterolosis of gallbladder
CPT/HCPCS: 74183; A9585

== ENCOUNTER 2024-10-11 08:28 | Outpatient (AMB) | payer OTHER, SELFPAY ==
--- NOTE | 2024-10-11 08:32 | A.OFFPC_ITS ---
Vital Signs 10/11/24 08:35 Height 5 ft 6 in Weight 147 lb 4 oz BMI 23.8 BP 118/80 Blood Pressure Location Lt brachial Position Sitting Pulse 64 Pulse Source Pulse Oximeter Pulse Oximetry (%) 97 Oxygen Delivery Method Room Air Intake Visit Reasons: Annual PE Allergies No Known Allergies Allergy (Verified 10/11/24 08:35) Medication List - Last Reconciled 10/11/24 by Maynor Dowling MD atenolol 25 mg PO DAILY Tobacco use date assessed: 10/11/24 Dental Screening Dental Screen Date: 10/11/24 Did you have a dental visit in the last 12 months?: Yes Did you have a dental problem in the last 6 months where you did not have access to dental care?: No Was dental information given to patient?: Patient has dentist HPI Annual PE HPI Details Physical exam appointment - The patient is a 39-year-old male pres enting for a wellness exam and follow-up on blood pressure - He maintains an active lifestyle due t o employment requiring physical activity. - No new symptoms or changes in health s tatus were communicated. - last year 01:00 o'clock for enzymes el evated that need to be repeated Health Maintenance - Discussion of regular physical activit y due to employment. 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 Patient Instructions - Continue current lifestyle as there ar e no new health concerns. - Follow up with labs as ordered. Review of Systems - Cardiovascular: Denies swelling of ank les. - Neurological: Denies any skin problems . - General: No fever no chills - Ear nose throat: No sore throat no hearing difficulty no ear pain - Gastrointestinal: No nausea vomiting or diarrhea - Endocrine: No polyuria polydipsia no heat intolerance - Genitourinary: No dysuria - Skin: No new complaints Physical Exam General: Cooperative, healthy appearing, comfortable, no acute distress Orientation: Patient oriented x3 Limitations: None Head: Normal to inspection Ears: Within normal limit visually Nose: Normal external nose present Face and sinus: Normal facial exam Eyes: Appearance normal, extraocular movement intact pupils reactive Neck: Normal visual inspection and supple Respiratory: Normal respiratory effort and able to speak in complete sentences. Clear to auscultation, no stridor Cardiovascular: S1 and S2 GI: Normal to inspection. Soft to palpation and nontender Skin: Turgor normal, no acute findings Neuro: Patient oriented x3, motor sensory intact, balance intact, tandem pass Extremities: Normal to inspection, no swelling of ankles, arms and shoulders are good, no problems PFSH Medical History Loza's syndrome Surgical History History of esophagogastroduodenoscopy (EGD) Hx of colonoscopy Status post proctocolectomy History of removal of cyst History of prostatectomy Family History Father Colon cancer Paternal Grandmother Colon cancer Social History Household Members Other:: single- lives with mom Housing: Apartment Patient Tobacco Use Status: Never used Tobacco e-Cigarette/Vaping Use: Never Used service: No Current occupational status: employed Current occupation: [employer] Cognitive needs: No Hearing needs: No Vision needs: Yes Questionnaire PHQ-9 Over the last 2 weeks, how often have you been bothered by any of the following problems? 1. Little interest or pleasure in doing things: not at all 2. Feeling down, depressed, or hopeless: not at all 3. Trouble falling or staying asleep, or sleeping too much: not at all 4. Feeling tired or having little energy: not at all 5. Poor appetite or overeating: not at all 6. Feeling bad about yourself - or that you are a failure or have let yourself or your family down: not at all 7. Trouble concentrating on things, such as reading the newspaper or watching television: not at all 8. Moving or speaking so slowly that other people could have noticed. Or the opposite - being so fidgety or restless that you have been moving around a lot more than usual: not at all 9. Thoughts that you would be better off or of hurting yourself in some way: not at all Total score: 0 Depression Screening Interpretation: Negative Depression Screening Done: Yes 83889 - PHQ-9 Billing: Yes Source: Developed by Drs. Davonte Nix, Meredith Corcoran, Donavan Hammond and colleagues, with an educational romulo from [employer]. Thrive Questionnaire Date Thrive assessed: 10/11/24 I am a: Patient What is your living situation today?: I have a steady place to live Within the past 12 months, did the food you bought not last and you didn't have the money to get more?: I choose not to answer this question Within the past 12 months, did you worry whether your food would run out before you got money to buy more?: I choose not to answer this question Do you have trouble paying for medicines?: I choose not to answer this question Do you have trouble getting transportation to medical appointments?: I choose not to answer this question Do you have trouble paying your heating and electricity bill?: I choose not to answer this question Do you have trouble taking care of your child, family member or friend?: I choose not to answer this question Do you have trouble with day-to-day activities such as bathing, preparing meals, shopping, managing finances, etc.?: I choose not to answer this question Are you currently unemployed and looking for a job?: I choose not to answer this question Are you interested in more education?: I choose not to answer this question Please select the resources that you would like help with: None Currently or been in a relationship where the following occur: I choose not to answer THRIVE Score: 0 AUDIT C Alcohol Use Questionnaire (AUDIT-C) 1. How often do you have a drink containing alcohol?: Monthly or less 2. How many drinks containing alcohol do you have on a typical day when you are drinking?: 1 or 2 3. How often do you have six or more drinks on one occasion?: Less than monthly Total Score: 2 Score Reviewed/Action Taken: Yes JACKIE-7 AMB Questionnaire JACKIE-7 Date JACKIE - 7 assessed: 10/11/24 Feeling nervous, anxious, or on edge: 0 = Not at all Not being able to stop or control worryin = Not at all Worrying too much about different things: 0 = Not at all Trouble relaxin = Not at all Being so restless that it is hard to sit still: 0 = Not at all Becoming easily annoyed or irritable: 0 = Not at all Feeling afraid as if something awful might happen: 0 = Not at all Total JACKIE-7 score (0-4 normal; 5-9 mild; 10-14 moderate; 15-21 severe): 0 Source: Developed by Drs. Davonte Nix, Meredith Corcoran, Donavan Hammond and colleagues, with an educational romulo from [employer]. JACKIE-7 Assessment Billing JACKIE-7 Assessment Tool: JACKIE-7 Assessment 68549 Physical exam (Primary Care) Vital Signs: Last Vital Signs Pulse 64 10/11/24 08:35 BP 118/80 10/11/24 08:35 Pulse Ox 97 10/11/24 08:35 Oxygen Delivery Method Room Air 10/11/24 08:35 BMI result Body Mass Index 23.8 Tobacco/Smoking Status: Tobacco use Status Tobacco use date assessed 10/11/24 10/11/24 08:35 Patient Tobacco Use Status Never used Tobacco 10/11/24 08:33 e-Cigarette/Vaping Use Never Used 10/11/24 08:33 PHQ-9: PHQ-9 Score PHQ-9: Total score 0 10/11/24 08:37 Depression Screening Interpretation: Negative Thrive Assessment: Date of Thrive Assessment Date Thrive assessed 10/11/24 10/11/24 08:37 Currently or been in a relationship where the following occur: I choose not to answer Coding Level of Care Code Est Pt Level 3 (63664) Est Pt Prev Care 18-39y(79187) Diagnoses Encounter for general adult medical examination with abnormal findings Z00.01 Hypertension, essential I10 Elevated serum lactate dehydrogenase R74.02 LFT elevation R79.89 Additional Codes JACKIE-7 Assessment Billing - JACKIE-7 Assessment Tool: JACKIE-7 Assessment 51698 ([id number]) PHQ-9 - 44574 - PHQ-9 Billing: Yes ([id number]) Assessment & Plan Assessment & Plan (1) Encounter for general adult medical examination with abnormal findings: Code(s): Z00.01 - Encounter for general adult medical examination with abnormal findings Category: Medical (2) Hypertension, essential: Code(s): I10 - Essential (primary) hypertension Category: Medical (3) Elevated serum lactate dehydrogenase: Code(s): R74.02 - Elevation of levels of lactic acid dehydrogenase [LDH] Category: Medical (4) LFT elevation: Code(s): R79.89 - Other specified abnormal findings of blood chemistry Category: Medical Plan Physical exam appointment - The patient is a 39-year-old male presenting for a wellness exam and follow-up on blood pressure - He maintains an active lifestyle due to employment requiring physical activity. - No new symptoms or changes in health status were communicated. - last year 01:00 o'clock for enzymes elevated that need to be repeated Health Maintenance - Discussion of regular physical activity due to employment. 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 Patient Instructions - Continue current lifestyle as there are no new health concerns. - Follow up with labs as ordered. Orders: Orders Comprehensive Met. Panel Today I10 - Essential (primary) hypertension, R74.02 - Elevation of levels of lactic acid dehydrogenase [LDH], R79.89 - Other specified abnormal findings of blood chemistry, Z00.01 - Encounter for general adult medical examination with abnormal findings Complete Blood Count Auto Diff Today I10 - Essential (primary) hypertension, R74.02 - Elevation of levels of lactic acid dehydrogenase [LDH], R79.89 - Other specified abnormal findings of blood chemistry, Z00.01 - Encounter for general adult medical examination with abnormal findings Lactate Dehydrogenase Today I10 - Essential (primary) hypertension, R74.02 - Elevation of levels of lactic acid dehydrogenase [LDH], R79.89 - Other specified abnormal findings of blood chemistry, Z00.01 - Encounter for general adult medical examination with abnormal findings Medications: Refilled atenolol 25 mg PO DAILY 90 tabs 3RF
[2024-10-11 08:35] VITALS: BP 118/80; PULSE 64; O2SAT 97; BMI 23.8
== END 2024-10-11 08:52 | disposition home or self-care (01) ==
PROVIDERS: PCP Internal Medicine; Visit Provider Internal Medicine
DX: Z00.00 Encounter for general adult medical examination without abnormal findings (principal); I10 Essential (primary) hypertension; R74.02 Elevation of levels of lactic acid dehydrogenase [LDH]; R79.89 Other specified abnormal findings of blood chemistry

== ENCOUNTER 2024-10-11 08:28 | Outpatient (REF) | payer OTHER, SELFPAY ==
[2024-10-11 10:43] LABS: MANUAL DIFF FLAG NO
[2024-10-11 10:49] LABS: Basophils Absolute Auto 0.1 X10*3/uL (0.0-0.2); Basophils Percent Auto 1.1 % (0-2); Eosinophils Absolute Auto 0.1 X10*3/uL (0.0-0.4); Eosinophils Percent Auto 2.3 % (0-4); Hematocrit 46.4 % (42.0-52.0); Imm Gran Abs Auto 0.02 X10*3/uL (0.00-0.03); Imm Gran Pct Auto 0.4 % (0.0-0.4); Lymphocytes Absolute Auto 1.5 X10*3/uL (1.2-4.9); Lymphocytes Percent Auto 26.7 % (20-40); Mean Corpuscular HGB Conc 34.5 g/dl (31.0-36.0); Mean Corpuscular Hemoglobin 31.7 pg (27.0-33.0); Mean Corpuscular Volume 92.1 fL (80.0-98.0); Mean Platelet Volume 11.5 fL (9.4-12.4); Monocytes Absolute Auto 0.7 X10*3/uL (0.1-1.2); Monocytes Percent Auto 11.5 % (2-11); Neutrophils Absolute Auto 3.3 x10*3/uL (2.0-8.3); Platelet Count 297 X10*3/uL (160-400); Red Blood Count 5.04 X10*6/uL (4.60-5.80); Red Cell Distribution Width 11.9 % (11.0-16.0); White Blood Count 5.7 X10*3/uL (4.8-10.8)
[2024-10-11 11:18] LABS: Alanine Aminotransferase 44 U/L (0-40); Albumin Level 4.3 g/dL (3.5-5.0); Anion Gap 13 (12-20); Aspartate Amino Transferase 29 U/L (5-37); Bilirubin Total 2.1 mg/dL (0.0-1.0); Blood Urea Nitrogen 21 mg/dL (9-16); Carbon Dioxide 26 mmol/L (22-29); Chloride 107 mmol/L (96-108); Estimated Glomerular Filt Rate > 60; Glucose Random 135 mg/dL (60-115); Lactate Dehydrogenase 263 U/L (118-273); Potassium 3.7 mmol/L (3.3-5.1); Sodium 142 mmol/L (135-145); Total Protein 7.3 g/dL (6.5-8.0)
[2024-10-11 11:40] LABS: Alkaline Phosphatase 65 U/L (39-117)
== END 2024-10-11 08:29 | disposition home or self-care (01) ==
LOC: HO.HMGCLDS 08:28
PROVIDERS: PCP Internal Medicine; Visit Provider Internal Medicine
DX: Z00.01 Encounter for general adult medical examination with abnormal findings (principal); I10 Essential (primary) hypertension; R74.02 Elevation of levels of lactic acid dehydrogenase [LDH]; R79.89 Other specified abnormal findings of blood chemistry
CPT/HCPCS: 36415; 80053; 83615; 85025; 96127

== ENCOUNTER 2024-11-15 07:48 | Outpatient (REF) | payer OTHER, SELFPAY ==
[2024-11-15 09:38] LABS: Anion Gap 11 (12-20); Blood Urea Nitrogen 22 mg/dL (9-16); Carbon Dioxide 29 mmol/L (22-29); Chloride 106 mmol/L (96-108); Estimated Glomerular Filt Rate > 60; Glucose Random 95 mg/dL (60-115); Potassium 4.3 mmol/L (3.3-5.1); Sodium 142 mmol/L (135-145)
[2024-11-15 11:44] LABS: Cortisol Random 6.8 ug/dL
[2024-11-17 09:34] LABS: DHEA Sulfate 125 mcg/dL (93-415)
[2024-11-20 21:29] LABS: Adrenocorticotropic Hormone 11 pg/mL (6-50)
[2024-11-21 06:28] LABS: Metanephrine, Free 42 pg/mL (<=57); Normetanephrines, Free 70 pg/mL (<=148); Total Metanephrine, Free 112 pg/mL (<=205)
[2024-11-22 10:30] LABS: Renin 1.41 ng/mL/h (0.25-5.82)
== END 2024-11-15 07:49 | disposition home or self-care (01) ==
LOC: HO.LAB 07:48
PROVIDERS: PCP Internal Medicine; Visit Provider Student in an Organized Health Care Education/Training Program
DX: D35.00 Benign neoplasm of unspecified adrenal gland (principal)
CPT/HCPCS: 36415; 80048; 82024; 82088; 82533; 82627; 83835; 84244

== ENCOUNTER 2024-11-15 07:48 | Outpatient (AMB) | payer OTHER, SELFPAY ==
--- NOTE | 2024-11-15 07:50 | A.OFFVIS_ITS ---
Vital Signs 11/15/24 07:53 Height 5 ft 7.99 in Weight 143 lb 15.39 oz BMI 21.9 BP 110/86 Blood Pressure Location Rt brachial Position Sitting Pulse 54 Pulse Source Pulse Oximeter Pulse Oximetry (%) 98 Oxygen Delivery Method Room Air Intake Visit Reasons: Benign neoplasm of unspecified adrenal gland Intake Note: Patient present today for Benign neoplasm of unspecified adrenal gland office visit. Accompanied by: Self / Same As Patient Allergies No Known Allergies Allergy (Verified 11/15/24 07:54) Medication List - Last Reconciled 11/15/24 by Madelin Castro MD atenolol 25 mg PO DAILY HPI Comments Details: 39-year-old male here today for initial evaluation of right adrenal gland nodule measuring 2.4 cm. 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 08/23/2024: MRI of the abdomen showed 2.4 X 1.8 cm right adrenal nodule, I reviewed the images myself. Report also says there was signal loss on opposed phase imaging, with the adrenal washout consistent with that, and so likely this is a adrenal adenoma. Patient has had an MRI cholangiopancreatography on 11/15/2023, I reviewed the images, not very clear I could not visualize the adrenals, in the report said the adrenals were unremarkable. Symptoms: Diagnosed with HTN JunJul 2024, started on atenolol 25 mg daily No history of DM, stroke , [place] Pt denies any weight gain, ,severe acne Has intermittent headaches denies any hx of proximal muscle weakness, easy bruisability ,no abdominal striaediaphoresis -,no history of glucose intolerance,no abdominal pain ,skin infection or hyperpigmentation. no recent vertebra or fragility fracture -No truncal obesity,facial plethora or recent mood change. No hx of depression. - no episodic palpitaions, pallor, abdominal pain, diaphoresis . -no loss of libido, no erectile dysfunction Physical exam General: sitting comfortably in no acute distress HEENT: normocephalic/atraumatic, Neck: supple Cardiac: normal heart sounds Pulm: normal breath sounds B/L, no added breath sounds Abd: not distended, no tenderness, no purple striae on abdomen Extremities: no edema, no signs of myxedema Neuro: AAO x3, Speech: normal, no facial droop, moving all 4 extremities, no proximal muscle weakness Laboratory Tests 10/11/24 08:56 Sodium 142 Potassium 3.7 Creatinine 1.14 Estimated GFR > 60 MR ABDOMEN WITHOUT AND WITH CONTRAST 08/23/24 CLINICAL INFORMATION: Loza syndrome. COMPARISON: Right upper quadrant ultrasound 02/23/2024 MRCP 11/15/2023 TECHNIQUE: MR abdomen was performed without and with use of 6.5 mL intravenous Gadavist gadolinium contrast. Postcontrast images are performed in multiphase dynamic sequences. Imaging was performed in 3 planes. MRCP was also performed. FINDINGS: LUNG BASES: No pleural or pericardial effusion. LIVER, GALLBLADDER, AND BILIARY TREE: Hepatic steatosis. The liver measures 19.7 cm in sagittal dimension. No suspicious hepatic lesion or biliary ductal dilatation is present. The common duct measures 4 mm at the gary hepatis and tapers smoothly. No intraductal filling defects. The gallbladder is unremarkable with no evidence of gallbladder wall thickening, or obvious pericholecystic inflammatory changes. PANCREAS: No ductal dilatation. SPLEEN: Not enlarged. ADRENAL GLANDS: 2.4 x 1.8 cm right adrenal nodule. There is diffuse signal loss on opposed phase imaging. Adrenal washout calculations are consistent. KIDNEYS AND URETERS: The kidneys are normal in size, shape, and enhance symmetrically. No hydronephrosis. No perinephric stranding. GASTROINTESTINAL TRACT: No bowel obstruction. Jejunojejunal intussusception in the left upper quadrant. No ascites or fluid collection. ABDOMINAL WALL: No significant hernia is appreciated. LYMPH NODES: No bulky lymphadenopathy. VASCULAR: Normal caliber abdominal aorta. MR/MR abdomen wo/w con IMPRESSION: There is no MR correlate to the gallbladder findings questioned from the recent right upper quadrant ultrasound. Previous MRCP performed on November 15, 2023 showed a normal MRI appearance of the gallbladder. Hepatomegaly and hepatic steatosis. 2.4 x 1.8 cm right adrenal nodule most likely representing adrenal adenoma. Adrenal washout calculations are consistent. Jejunojejunal intussusception in the left upper quadrant. No small bowel obstruction. Electronically signed by: Valente Willett MD 09/25/2024 03:34 PM [facility] Medical History Loza's syndrome Surgical History History of esophagogastroduodenoscopy (EGD) Hx of colonoscopy Status post proctocolectomy History of removal of cyst History of prostatectomy Family History Father Colon cancer Paternal Grandmother Colon cancer Social History Household Members Other:: single- lives with mom Housing: Apartment Patient Tobacco Use Status: Never used Tobacco e-Cigarette/Vaping Use: Never Used service: No Current occupational status: employed Current occupation: [employer] Cognitive needs: No Hearing needs: No Vision needs: Yes Physical Exam Vital Signs: Last Vital Signs Pulse 54 11/15/24 07:53 BP 110/86 11/15/24 07:53 Pulse Ox 98 11/15/24 07:53 Oxygen Delivery Method Room Air 11/15/24 07:53 BMI result Body Mass Index 21.9 Assessment & Plan Assessment & Plan (1) Adrenal adenoma: Code(s): D35.00 - Benign neoplasm of unspecified adrenal gland Category: Medical Qualifiers: Laterality: right Qualified Code(s): D35.01 - Benign neoplasm of right adrenal gland Plan: 39-year-old male coming in today for initial evaluation of right adrenal adenoma.08/23/2024: MRI of the abdomen showed 2.4 X 1.8 cm right adrenal nodule, I reviewed the images myself. Report also says there was signal loss on opposed phase imaging, with the adrenal washout consistent with that, and so likely this is a adrenal adenoma. Patient has had an MRI cholangiopancreatography on 11/15/2023, I reviewed the images, not very clear I could not visualize the adrenals, in the report said the adrenals were unremarkable. However likely this imaging just could not focus clearly on the adrenals. Our first concern is to be sure that this is not an adrenal cortical carcinoma. ?Fortunately adrenal cortical carcinomas are exceedingly rare. ?However they do carry with them a very poor prognosis.?Given his clinical history with no deterioration in overall health; I have low suspicion for adrenocortical carcinoma to start with. ?I will plan to repeat imaging of his adrenal gland nodule with a CT scan in August 2025 which would be 1 year from his last 1 to ensure this is not growing. ?? Another concern of adrenal masses is that they might be metastatic disease from another primary malignancy. ?This seems unlikely in his case. ??A renal cancer which can metastasize to the adrenal glands probably would have been identified on his initial imaging study. ?Usually metastatic disease to the adrenal glands goes to both adrenal glands. ? ? Most adrenal masses are noncancerous or benign adrenal adenomas. ?However they can occasionally be functional and the hormones that are produced can cause clinical problems.??He has not been screened for any hormonal excess; although low clinical suspicion for pheochromocytoma; given the adrenal adenoma in question is greater than 1 cm ; I will err on the side of caution and screen with plasma free metanephrines with his blood work today. ? He does have hypertension and hence we will also check aldosterone and plasma renin activity testing . ? We will check a 1 mg overnight dexamethasone suppression test.?However he has no clinical features of Bonham syndrome. ? The greatest likelihood is that this will be a nonfunctional benign adrenal adenoma that does not need to be removed. ?However we want to be careful that we have excluded all the other possibilities?first.? ? Plan: -ordered baseline ACTH, cortisol, DHEA-S, renin, aldosterone, BMP, plasma metanephrine levels -ordered dexamethasone suppression test -follow up in 3 weeks to discuss results -will plan to repeat imaging with CT of the adrenals in August 2025 Plan I spent 45 minutes in reviewing the record, seeing the patient and documenting in the medical record. Orders: Orders Adrenocorticotropic Hormone 11/18/24 D35.00 - Benign neoplasm of unspecified adrenal gland Cortisol Random 11/18/24 D35.00 - Benign neoplasm of unspecified adrenal gland Adrenocorticotropic Hormone Today D35.00 - Benign neoplasm of unspecified adrenal gland Cortisol Random Today D35.00 - Benign neoplasm of unspecified adrenal gland Metanephrines, Plasma Today D35.00 - Benign neoplasm of unspecified adrenal gland DHEA Sulfate Today D35.00 - Benign neoplasm of unspecified adrenal gland Renin Today D35.00 - Benign neoplasm of unspecified adrenal gland Aldosterone Today D35.00 - Benign neoplasm of unspecified adrenal gland Basic Metabolic Panel Today D35.00 - Benign neoplasm of unspecified adrenal gland Dexamethasone 11/18/24 D35.00 - Benign neoplasm of unspecified adrenal gland Medications: New dexamethasone Take 1 tablet at 11 pm at night and do blood work the next morning at 8 AM 1 mg PO DAILY 1 tab 0RF Patient Instructions: 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 You will take a 1 mg pill of dexamethasone at 11 PM and then have a blood draw for cortisol at 8AM the next morning. It is important to make sure you take the dexamethasone at 11 PM and have the blood test as close to 8AM as possible. Coding Level of Care Code New Pt Level 4 (25567) Diagnoses Adenoma of right adrenal gland D35.01 Laterality: right Time Spent (min) 45
[2024-11-15 07:53] VITALS: BP 110/86; PULSE 54; O2SAT 98; BMI 21.9
== END 2024-11-15 08:24 | disposition home or self-care (01) ==
PROVIDERS: PCP Internal Medicine; Visit Provider Student in an Organized Health Care Education/Training Program
DX: D35.01 Benign neoplasm of right adrenal gland (principal)
CPT/HCPCS: 99204

== ENCOUNTER 2024-11-18 08:21 | Outpatient (REF) | payer OTHER, SELFPAY ==
[2024-11-18 11:14] LABS: Cortisol Random 1.3 ug/dL
[2024-11-22 05:19] LABS: Adrenocorticotropic Hormone <5 pg/mL (6-50)
[2024-11-29 16:39] LABS: Dexamethasone 241 ng/dL
== END 2024-11-18 08:22 | disposition home or self-care (01) ==
LOC: HO.HMGCLDS 08:21
PROVIDERS: PCP Internal Medicine; Visit Provider Student in an Organized Health Care Education/Training Program
DX: D35.00 Benign neoplasm of unspecified adrenal gland (principal)
CPT/HCPCS: 36415; 80299; 82024; 82533

== ENCOUNTER 2024-12-09 08:31 | Outpatient (AMB) | payer OTHER, SELFPAY ==
--- NOTE | 2024-12-09 08:33 | A.OFFVIS_ITS ---
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 08/23/2024: MRI of the abdomen showed 2.4 X 1.8 cm right adrenal nodule, I reviewed the images myself. Report also says there was signal loss on opposed phase imaging, with the adrenal washout consistent with that, and so likely this is a adrenal adenoma. Patient has had an MRI cholangiopancreatography on 11/15/2023, I reviewed the images, not very clear I could not visualize the adrenals, in the report said the adrenals were unremarkable. Symptoms: Diagnosed with HTN JunJul 2024, started on atenolol 25 mg daily No history of DM, stroke , [place] Pt denies any weight gain, ,severe acne Has intermittent headaches denies any hx of proximal muscle weakness, easy bruisability ,no abdominal striaediaphoresis -,no history of glucose intolerance,no abdominal pain ,skin infection or hyperpigmentation. no recent vertebra or fragility fracture -No truncal obesity,facial plethora or recent mood change. No hx of depression. - no episodic palpitaions, pallor, abdominal pain, diaphoresis . -no loss of libido, no erectile dysfunction Interval history November 2024 blood work showed normal plasma renin activity, no elevation in plasma aldosterone concentration, normal plasma metanephrine and normetanephrine levels as well as normal dexamethasone suppression test. Patient feels well today. Blood pressure well-controlled. Physical exam General: sitting comfortably in no acute distress HEENT: normocephalic/atraumatic, Neck: supple Cardiac: normal heart sounds Pulm: normal breath sounds B/L, no added breath sounds Abd: not distended, no tenderness, no purple striae on abdomen Extremities: no edema, no signs of myxedema Neuro: AAO x3, Speech: normal, no facial droop, moving all 4 extremities, no proximal muscle weakness Laboratory Tests 10/11/24 08:56 Sodium 142 Potassium 3.7 Creatinine 1.14 Estimated GFR > 60 Laboratory Tests 11/15/24 11/18/24 08:51 08:24 Sodium 142 Potassium 4.3 Renin 1.41 Aldosterone 5 DHEA Sulfate 125 Random Cortisol 6.8 1.3 ACTH 11 <5 L Plasma Free Metaneph 42 Plasma Free Normeta 70 Plas Total Metaneph 112 Dexamethasone 241 MR ABDOMEN WITHOUT AND WITH CONTRAST 08/23/24 CLINICAL INFORMATION: Loza syndrome. COMPARISON: Right upper quadrant ultrasound 02/23/2024 MRCP 11/15/2023 TECHNIQUE: MR abdomen was performed without and with use of 6.5 mL intravenous Gadavist gadolinium contrast. Postcontrast images are performed in multiphase dynamic sequences. Imaging was performed in 3 planes. MRCP was also performed. FINDINGS: LUNG BASES: No pleural or pericardial effusion. LIVER, GALLBLADDER, AND BILIARY TREE: Hepatic steatosis. The liver measures 19.7 cm in sagittal dimension. No suspicious hepatic lesion or biliary ductal dilatation is present. The common duct measures 4 mm at the gary hepatis and tapers smoothly. No intraductal filling defects. The gallbladder is unremarkable with no evidence of gallbladder wall thickening, or obvious pericholecystic inflammatory changes. PANCREAS: No ductal dilatation. SPLEEN: Not enlarged. ADRENAL GLANDS: 2.4 x 1.8 cm right adrenal nodule. There is diffuse signal loss on opposed phase imaging. Adrenal washout calculations are consistent. KIDNEYS AND URETERS: The kidneys are normal in size, shape, and enhance symmetrically. No hydronephrosis. No perinephric stranding. GASTROINTESTINAL TRACT: No bowel obstruction. Jejunojejunal intussusception in the left upper quadrant. No ascites or fluid collection. ABDOMINAL WALL: No significant hernia is appreciated. LYMPH NODES: No bulky lymphadenopathy. VASCULAR: Normal caliber abdominal aorta. MR/MR abdomen wo/w con IMPRESSION: There is no MR correlate to the gallbladder findings questioned from the recent right upper quadrant ultrasound. Previous MRCP performed on November 15, 2023 showed a normal MRI appearance of the gallbladder. Hepatomegaly and hepatic steatosis. 2.4 x 1.8 cm right adrenal nodule most likely representing adrenal adenoma. Adrenal washout calculations are consistent. Jejunojejunal intussusception in the left upper quadrant. No small bowel obstruction. Electronically signed by: Valente Willett MD 09/25/2024 03:34 PM [facility] Medical History Loza's syndrome Surgical History History of esophagogastroduodenoscopy (EGD) Hx of colonoscopy Status post proctocolectomy History of removal of cyst History of prostatectomy Family History Father Colon cancer Paternal Grandmother Colon cancer Social History Household Members Other:: single- lives with mom Housing: Apartment Patient Tobacco Use Status: Never used Tobacco e-Cigarette/Vaping Use: Never Used service: No Current occupational status: employed Current occupation: [employer] Cognitive needs: No Hearing needs: No Vision needs: Yes Physical Exam Vital Signs: Last Vital Signs Pulse 59 12/09/24 08:34 BP 118/78 12/09/24 08:34 Pulse Ox 100 12/09/24 08:34 Oxygen Delivery Method Room Air 12/09/24 08:34 BMI result Body Mass Index 23.5 Assessment & Plan Assessment & Plan (1) Adrenal adenoma: Code(s): D35.00 - Benign neoplasm of unspecified adrenal gland Category: Medical Qualifiers: Laterality: right Qualified Code(s): D35.01 - Benign neoplasm of right adrenal gland Plan: 39-year-old male coming in today for follow up of right adrenal adenoma.08/23/2024: MRI of the abdomen showed 2.4 X 1.8 cm right adrenal nodule, I reviewed the images myself. Report also says there was signal loss on opposed phase imaging, with the adrenal washout consistent with that, and so likely this is a adrenal adenoma. Patient has had an MRI cholangiopancreatography on 11/15/2023, I reviewed the images, not very clear I could not visualize the adrenals, in the report said the adrenals were unremarkable. However likely this imaging just could not focus clearly on the adrenals. Our first concern is to be sure that this is not an adrenal cortical carcinoma. ?Fortunately adrenal cortical carcinomas are exceedingly rare. ?However they do carry with them a very poor prognosis.?Given his clinical history with no deterioration in overall health; I have low suspicion for adrenocortical carcinoma to start with. ?I will plan to repeat imaging of his adrenal gland nodule with a CT scan in August 2025 which would be 1 year from his last 1 to ensure this is not growing. This was ordered today. ?? November 2024 blood work showed normal plasma renin activity, no elevation in plasma aldosterone concentration, normal plasma metanephrine and normetanephrine levels as well as normal dexamethasone suppression test. Hence this nodule is not functioning. ? Plan: -ordered CT of the adrenals for August 2025 -follow up in September 2025 to discuss results Plan see above Orders: Orders CT adrenal wo/w IV con 08/25/25 D35.01 - Benign neoplasm of right adrenal gland Patient Instructions: Do Ct rey in Aug 2025, someone will call you to schedule this Follow up in Sep 2025 Coding Level of Care Code Est Pt Level 3 (78194) Diagnoses Adenoma of right adrenal gland D35.01 Laterality: right
[2024-12-09 08:34] VITALS: BP 118/78; PULSE 59; O2SAT 100; BMI 23.5
== END 2024-12-09 08:48 | disposition home or self-care (01) ==
LOC: HO.ENCR 08:31
PROVIDERS: PCP Internal Medicine; Visit Provider Student in an Organized Health Care Education/Training Program
DX: D35.01 Benign neoplasm of right adrenal gland (principal)
CPT/HCPCS: 99213

== ENCOUNTER 2024-12-12 06:03 | Day surgery (SDC) | payer OTHER, SELFPAY ==
[2024-12-10 15:00] VITALS: BMI 23.5
--- NOTE | 2024-12-11 08:55 | P.CONAN_ITS ---
Documented by User: Cher Brito NP 12/11/24 08:58 HPI - Anesthesia Eval Consult details Narrative: 39yo M for Upper Endoscopy, Sigmoidoscopy Flexible s/p same with TIVA 12/2023 [facility] Active Problems Active Problems: All Active Problems LFT elevation (Acute) Elevated serum lactate dehydrogenase (Acute) Adrenal adenoma (Acute) Hypertension, essential (Acute) LVH (left ventricular hypertrophy) (Acute) Stress at work (Acute) Chest pressure (Acute) Shortness of breath (Acute) Elevated blood pressure reading (Acute) RUQ pain (Acute) Abnormal abdominal ultrasound (Acute) Hydrocele of testis (Acute) Nausea (Acute) Gallbladder polyp (Acute) Lump in scrotum (Acute) History of total colectomy (Acute) Colon cancer screening (Acute) Scalp cyst (Acute) Familial adenomatous polyposis (Acute) Encounter for general adult medical examination with abnormal findings (Acute) Loza's syndrome (Acute) Past Medical History Medical History Hx of flexible sigmoidoscopy (12/2023) Loza's syndrome Family History Family History Father Colon cancer Paternal Grandmother Colon cancer Family history of problems with anesthesia: No Surgical History Surgical History History of esophagogastroduodenoscopy (EGD) Hx of colonoscopy Status post proctocolectomy History of removal of cyst History of prostatectomy History of Problems with Anesthesia: No Social History Social History Household Members Other:: single- lives with mom Housing: Apartment Patient Tobacco Use Status: Never used Tobacco e-Cigarette/Vaping Use: Never Used Have you been hit, kicked, punched, or otherwise hurt by someone within the past year? If so, by whom?: No Are you DNR?: No Advance Directives: No Advance Directives Information Provided: Yes service: No Current occupational status: employed Current occupation: [employer] Cognitive needs: No Hearing needs: No Vision needs: Yes Meds Allergies Allergy/AdvReac Type Severity Reaction Status Date / Time No Known Allergies Allergy Verified 12/09/24 08:34 Exam Height,Weight and Vital Signs: Height 5 ft 6 in Weight 65.998 kg Narrative Narrative: ECHO 2023 Conclusions: - Essentially normal study with upper limits of normal ascending aortic size Assessment and Plan Assessment Anesthesia Assessment: Chart Reviewed Final Anesthetic Review Family History of Problems with Anesthesia: No History of Problems with Anesthesia: No Documented by User: Patti Arredondo MD 12/12/24 07:27 [facility] Past Medical History Medical History Hx of flexible sigmoidoscopy (12/2023) Loza's syndrome Family History Family History Father Colon cancer Paternal Grandmother Colon cancer Surgical History Surgical History History of esophagogastroduodenoscopy (EGD) Hx of colonoscopy Status post proctocolectomy History of removal of cyst History of prostatectomy Social History Social History Household Members Other:: single- lives with mom Housing: Apartment Patient Tobacco Use Status: Never used Tobacco e-Cigarette/Vaping Use: Never Used Have you been hit, kicked, punched, or otherwise hurt by someone within the past year? If so, by whom?: No Are you DNR?: No Advance Directives: No Advance Directives Information Provided: Yes service: No Current occupational status: employed Current occupation: [employer] Cognitive needs: No Hearing needs: No Vision needs: Yes Meds Allergies Allergy/AdvReac Type Severity Reaction Status Date / Time No Known Allergies Allergy Verified 12/09/24 08:34 Exam Airway Mallampati Class: IV (prominent upper incisors, micrognathia) TM Dist: >3cm Neck ROM: Full Partial: Upper Loose/Missing/Broken Teeth: Yes and Upper Heart: RRR Lungs: CTA Assessment and Plan Assessment Anesthesia Assessment: Anesthesia Plan Discussed Final Anesthetic Review NPO: Yes ASA Class: II Final Preanesthetic Review: Meds/Allgs Chart Reviewed, Consent Obtained/Reviewed and Anes Risks/Benef Reviewed Patient Risk: Low Procedure Risk: Intermediate Anesthetic Plan Anesthetic Plan: MAC: Disposition: Standard PACU
[2024-12-12 06:42] VITALS: BP 142/94; PULSE 61; RESP 20; TEMP 36.7; O2SAT 98; BMI 22.8
[2024-12-12] MEDS: Lactated Ringers 1,000 ML 100 ML IVCONT (06:57)
--- NOTE | 2024-12-12 07:40 | MHC.SHP ---
Pre-Procedural Eval Section A - 24 Hr Update-Section A only Date of Service: 12/12/24 Section B - Complete if H&P > 30 days Chief Complaint: Polyp of stomach and duodenum Relevant Family History (Specify if Yes): No Relevant Social History: None Present Medications: see Short Stay Collaborative assessment Medical History: Significant History (Hx of flexible sigmoidoscopy (12/2023) Loza's syndrome) History of Previous Operations: Relevant previous surgery/procedure and date(s) (History of esophagogastroduodenoscopy (EGD) Hx of colonoscopy Status post proctocolectomy History of removal of cyst History of prostatectomy) Allergies: Allergies Allergy/AdvReac Type Severity Reaction Status Date / Time No Known Allergies Allergy Verified 12/09/24 08:34 Review of Systems Sugical H&P ROS: Negative: Constitution, Cardiovascular, Respiratory, Neurological, Psychiatric, Hem-Onc, Allergic/Immunologic, Gastrointestinal, Genitourinary, Musculoskeletal, Integumentary, Endocrine and Eyes/Ears/Nose/Throat Exam Surgical H&P Exam: Normal: HEENT, Normal: Heart, Normal: Lungs, Normal: Extremities, Normal: Abdomen, Normal: Skin and Normal: Neurological Plan Diagnosis/Plan: Unchanged I have reviewed the history and physical and performed a pertinent physical examination on my patient. No changes have occurred unless specified. Time Spent With Patient Time: Total time managing care of this patient today ____ minutes.
--- NOTE | 2024-12-12 08:24 | W.PM.OPN ---
Operative Note Operative Note Date of Service: 12/12/24 Narrative: Procedure Description: EGD, Sigmoidoscopy Indication: Loza Syndrome, hx of polyps Anesthesia: MAC FLEXIBLE TRANSORAL UPPER GASTROINTESTINAL ENDOSCOPY and Sigmoidoscopy Consent: Indications for the procedure and potential complications of bleeding, perforation, reaction to medications and missed diagnosis were discussed with the patient and informed consent was obtained. Instrument: Olympus GIF H 190 J mid size upper endoscope Monitoring: Vital signs and clinical assessment, continuous EKG monitoring, Pulse oximetry, Carbon Dioxide monitoring and blood pressure monitoring were done throughout the procedure. Procedure: The patient was placed in the left lateral decubitis position and pre-procedure medications were administered and a bite block was placed. The endoscope was inserted into the mouth and advanced under direct vision to the third part of duodenum. A careful inspection was made as the upper endoscope was withdrawn including a retroflexed examination of the proximal stomach; Findings and interventions are described below. Findings: Larynx:normal Esophagus: GE junction at 40 cm, diaphragm hiatus at 40 cm, mild esophagitis noted Stomach: Fundic gland polyposis in the fundal area. Biopsies were obtained. Grade 2 flap valve on retroflexed examination of the cardia. Duodenum: several sub centimeter adenomatous polyps noted in second part of duodenum, removed with combination of cold forceps and cold snare I used a side viewer scope and the ampulla was normal Intervention: Biopsies as noted above, cold snare SIGMOIDOSCOPY: Procedure: The patient was placed in the left lateral decubitis position and pre-procedure medications were administered. After a digital rectal examination of the ano-rectum, the video colonoscope was inserted into the rectum and advanced through the colon to the rectal anal pouch The colonoscope was slowly withdrawn in a retrograde panoramic fashion and the colon mucosa was carefully examined including a retroflexed view of the rectum. Findings and interventions are described below. Procedure Difficulty: easy Findings: normal rectal mucosa, but in distal rectum close to anal line x 2 small polyps noted 5-6 mm, one removed with cold snare and the other with cold forceps Impression and Post Procedure Diagnosis: Endoscopy Findings: fundic gland polyposis duodenal polyps Sigmoidoscopy Findings: rectal polyps Plan: Await Pathology results Repeat endoscopies in 1 year or earlier if clinically indicated Above findings were reviewed with the patient and relevant handouts were provided if indicated.
[2024-12-12 08:29] VITALS: BP 106/68; PULSE 71; RESP 18; TEMP 36.1; O2SAT 98
[2024-12-12 08:44] VITALS: BP 119/78; PULSE 73; RESP 18; O2SAT 99
[2024-12-12 09:00] VITALS: BP 122/83; PULSE 54; RESP 16; TEMP 36.2; O2SAT 98
== END 2024-12-12 10:13 | disposition home or self-care (01) ==
PROVIDERS: PCP Internal Medicine; Visit Provider Internal Medicine Gastroenterology
PROC: 0DJ08ZZ Inspection of Upper Intestinal Tract, Via Natural or Artificial Opening Endoscopic (ICD-10-PCS; CPT 43235; principal; 2024-12-12 07:30)
PROC: 0DJD8ZZ Inspection of Lower Intestinal Tract, Via Natural or Artificial Opening Endoscopic (ICD-10-PCS; CPT 45330; 2024-12-12 07:30)
DX: K62.1 Rectal polyp (principal); Z86.0101 Personal history of adenomatous and serrated colon polyps; D13.2 Benign neoplasm of duodenum; K31.7 Polyp of stomach and duodenum; K20.90 Esophagitis, unspecified without bleeding; Q87.89 Other specified congenital malformation syndromes, not elsewhere classified; I10 Essential (primary) hypertension
CPT/HCPCS: 45338; 45331; 43251; 43239; 88305; 88313; 88342; J1610; J2003; J2704

== ENCOUNTER → 2024-12-12 06:03 | Outpatient (BNV) | payer OTHER, SELFPAY | PROVIDERS: PCP Internal Medicine; Visit Provider Internal Medicine Gastroenterology | DX: K20.90 Esophagitis, unspecified without bleeding (principal); K31.7 Polyp of stomach and duodenum; Z86.0100 Personal history of colon polyps, unspecified; Z90.49 Acquired absence of other specified parts of digestive tract; K63.5 Polyp of colon | CPT/HCPCS: 43239; 43251; 45331; 45338 ==

== ENCOUNTER 2025-02-17 08:56 | Outpatient (AMB) | payer OTHER, SELFPAY ==
--- NOTE | 2025-02-17 09:06 | MHC.OFFVIS ---
Vital Signs 02/17/25 09:08 Height 5 ft 6 in Weight 140 lb BMI 22.6 BP 105/69 Blood Pressure Location Lt brachial Position Sitting Pulse 66 Pulse Oximetry (%) 98 Intake Visit Reasons: 6 month follow up Intake Note: Patient 6 month follow up for rectal polyps. Patient denies any GI issues for today visit. 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-her for f/u RECAP: 01/02 EGD/sigmoidoscopy: Endoscopy Findings: fundic gland polyposis duodenal polyp Sigmoidoscopy Findings: rectal polyps Path: tubular adenoma duodenum colon tubular adenomas LGD in fundic gland polyps US: 03/04- echogenic lesion GB< steatosis of liver, mild elevated lft MRCP: nml GB --jejunojejunal intuss but no sx 12/2024 EGD/sig with side viewing scope Endoscopy Findings: fundic gland polyposis duodenal polyps--adenomatous Sigmoidoscopy Findings: rectal polyps--hyperplastic seeing endocrine for adrenal adenoma, INTERIM: doing well no abdominal pain no bowel irregularities no weight loss no skin lesions EXAM: GENERAL: The patient is well developed and nontoxic, slightly dysmorphic features VITAL SIGNS:see workflow HEENT: Nonicteric sclerae, PERRLA, EOMI. Oropharynx clear. Moist mucous membranes. Conjunctivae appear well perfused. No thyroid mass. CHEST: Chest wall is nontender. HEART: Regular rate and rhythm without murmurs. LUNGS: Clear to auscultation bilaterally. ABDOMEN: Soft, positive bowel sounds, nontender, no organomegaly.no flank tenderness SKIN: No rash, no excessive bruising, petechiae, or purpura. NEUROLOGIC: Cranial nerves II-XII intact without motor/sensory deficit. Psych: normal affect A/P: 1/ LGD and fundic gland polyps 2/ duodenal adenoma 3/ colonic adenomas 4/ Loza syndrome causing above, can also be assoc with thyroid and liver disease, malignancies --seeing endocrinoloy for adrenal adenoma 5/ imaging with intussussception, but no sx PLAN: 1/ repeat EGD and sigmoid 01/04 or earlier if clinically indicated 2/ f/u endocrinology [facility] Medical History Hx of flexible sigmoidoscopy (12/2023) Loza's syndrome Surgical History History of esophagogastroduodenoscopy (EGD) Hx of colonoscopy Status post proctocolectomy History of removal of cyst History of prostatectomy Family History Father Colon cancer Paternal Grandmother Colon cancer Social History Household Members Other:: single- lives with mom Housing: Apartment Patient Tobacco Use Status: Never used Tobacco e-Cigarette/Vaping Use: Never Used service: No Current occupational status: employed Current occupation: [employer] Cognitive needs: No Hearing needs: No Vision needs: Yes Physical Exam Vital Signs: Last Vital Signs Pulse 66 02/17/25 09:08 BP 105/69 02/17/25 09:08 Pulse Ox 98 02/17/25 09:08 BMI result Body Mass Index 22.6 Assessment & Plan Assessment & Plan (1) Loza's syndrome: Comment: And due for 1 year repeat endoscopy Code(s): Q87.89 - Other specified congenital malformation syndromes, not elsewhere classified Category: Medical Plan: as above Coding Level of Care Code Est Pt Level 3 (08518) Diagnoses Loza's syndrome Q87.89
[2025-02-17 09:08] VITALS: BP 105/69; PULSE 66; O2SAT 98; BMI 22.6
== END 2025-02-17 09:19 | disposition home or self-care (01) ==
LOC: HO.HGI 08:57
PROVIDERS: PCP Internal Medicine; Visit Provider Internal Medicine Gastroenterology
DX: Q87.89 Other specified congenital malformation syndromes, not elsewhere classified (principal)
CPT/HCPCS: 99213

== ENCOUNTER 2025-06-17 13:54 | Outpatient (REF) | payer OTHER, SELFPAY ==
--- NOTE | ~2025-06-17 | US_ITS ---
EXAMINATION: US SCROTUM HISTORY: N43.3 - Hydrocele, unspecified. COMPARISON: Comparison is made with the prior examination dated 04/22/2024. FINDINGS: Real-time grayscale ultrasound imaging of the scrotum was performed. RIGHT TESTICLE: The right testis measures 4.6 x 2.1 x 3.8 cm and demonstrates normal homogeneous echotexture. Again seen is a hypoechoic mass demonstrating internal vascular flow at the upper pole of the right testis measuring 7 x 6 x 7 mm (previously 7 x 6 x 4 mm). The right testis demonstrates normal color Doppler flow. RIGHT EPIDIDYMIS: Normal in size, shape, and vascularity. LEFT TESTICLE: The left testis measures 4.4 x 2.1 x 4.0 cm and demonstrates normal homogeneous echotexture. No masses are seen. The left testis demonstrates normal color Doppler flow. LEFT EPIDIDYMIS: Normal in size, shape, and vascularity. There is a cyst of the epididymal body measuring 1.9 x 0.6 x 1.6 cm. VARICOCELE: None. HYDROCELE: No significant hydrocele is seen. OTHER COMMENTS: None. US/US scrotum IMPRESSION: Hypoechoic mass in the right testis measuring 7 x 6 x 7 mm, slightly larger than on the prior study. Neoplasm is not excluded. Electronically signed by: Davonte Lyle MD 06/17/2025 02:24 PM EDT
== END 2025-06-17 13:55 | disposition home or self-care (01) ==
LOC: HO.HMGCX 13:54
PROVIDERS: PCP Internal Medicine; Visit Provider Nurse Practitioner Family
DX: N43.3 Hydrocele, unspecified (principal); N50.89 Other specified disorders of the male genital organs
CPT/HCPCS: 76870

== ENCOUNTER → 2025-06-17 13:56 | Outpatient (BNV) | payer OTHER, SELFPAY | PROVIDERS: PCP Internal Medicine; Visit Provider Radiology Diagnostic Radiology | DX: N43.3 Hydrocele, unspecified (principal) | CPT/HCPCS: 76870 ==

== ENCOUNTER 2025-07-02 13:29 | Outpatient (AMB) | payer OTHER, SELFPAY ==
--- NOTE | 2025-07-02 13:31 | A.OFFVIS_ITS ---
Intake Visit Reasons: Follow up Intake Note: Patient is present for F/U Urology Medication:NONE Antibiotic Allergy:NONE Blood Thinner:NONE Judicial Reporter Required: No Allergies No Known Allergies Allergy (Verified 07/02/25 14:27) Medication List - Last Reconciled 07/02/25 by ROSALIA Raygoza atenolol 25 mg PO DAILY HPI Comments Details: Chang Rodríguez is a pleasant 40-year-old male patient of Dr. Dowling. 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 He presents to the office today for a follow-up of his right-sided scrotal lump/lesion. In discussion with the patient today reports to be doing and feeling well. He reports no bothersome urinary issues or concerns since his last office visit here 1 year ago. Recent scrotal surveillance monitoring u/s results reviewed with the patient today. 07/05 hypoechoic mass in the right testes measuring 7 x 6 x 7 mm, slightly larger than prior study. Neoplasm is not excluded. In assessment of the patient today the penis is uncircumcised. There is a calcified area palpable to the anterior portion of the right testicle otherwise no open areas, masses, and or drainage noted throughout the system. Hyperechoic lesion of the right testicle previously measured 4 mm. We did discussed variability in sizing. We also discussed further treatment options and risks and benefits of these treatment options. Previous workup has included labs as noted and trended below. 11/04--lactate dehydrogenase 327, alpha fetoprotein 4.5, tumor marker HCG < 5. He denies any bothersome urinary issues or concerns. He denies pain. He denies urinary urgency, urinary frequency, incontinence, nocturia, hematuria, dysuria, foul smelling urine, changes to urinary stream, flank pain, fever, and or chills. He is happy with his current voiding parameters. [facility] Medical History Hx of flexible sigmoidoscopy (12/2023) Loza's syndrome Surgical History History of esophagogastroduodenoscopy (EGD) Hx of colonoscopy Status post proctocolectomy History of removal of cyst History of prostatectomy Family History Father Colon cancer Paternal Grandmother Colon cancer Social History Household Members Other:: single- lives with mom Housing: Apartment Patient Tobacco Use Status: Never used Tobacco e-Cigarette/Vaping Use: Never Used service: No Current occupational status: employed Current occupation: [employer] Cognitive needs: No Hearing needs: No Vision needs: Yes Review of Systems Const Reports no additional complaints Eyes Reports no additional complaints ENT Reports no additional complaints Card Reports no additional complaints Resp Reports no additional complaints GI Reports as per HPI Reports as per HPI Musc Reports no additional complaints Neuro Reports no additional complaints Psych Reports no additional complaints Physical Exam Const General: cooperative, healthy appearing, comfortable, no acute distress, well developed, alert and awake Nutritional Appearance: thin Orientation/consciousness: patient oriented x3 Limitations: no limitations HEENT Head: Yes normal to inspection, Yes normocephalic and Yes atraumatic Ears: hearing grossly normal bilaterally Eyes General: appearance normal, both eyes and all related structures Neck Neck: Yes normal visual inspection and Yes trachea midline Chest Chest palpation & inspection: normal inspection of the chest Resp Effort & Inspection: normal respiratory effort and able to speak in complete sentences Cardio Rate: regular rate GI Inspection: Yes normal to inspection Other: as per HPI General: Yes no CVA tenderness Penis: normal penis and uncircumcised Meatus: meatus normal Back/Spine/Pelvis Back: no CVA tenderness Skin General skin exam: no rashes or lesions noted Neuro General: patient oriented x3 Extrem General: Yes normal to inspection Psych Appearance: grossly normal and well kempt Mental Status: mental status grossly normal Speech and movement: Normal speech and movement present and Clear speech present Affect: normal affect Attitude: cooperative Thought process: Normal thought process present Thought content: Normal thought content present Insight: Fair insight present (Psych) Judgement: Fair judgement present (Psych) Results AMB Urinalysis, Automated UA Leukoctes 0 Asim/uL Last Edit by MAGGIE Wahl on 07/02/25 13:43 UA Nitrite Negative Last Edit by MAGGIE Wahl on 07/02/25 13:43 UA Urobilinogen 0.2 mg/dL Last Edit by MGAGIE Wahl on 07/02/25 13:4 3 UA Protein 15 mg/dL Last Edit by Kate Elliott [facility] on 07/02/25 13:43 UA pH 6.0 Last Edit by Kate Elliott [facility] on 07/02/25 13:43 UA Blood 10 Mathieu/uL Last Edit by Kate Elliott [facility] on 07/02/25 13:43 UA Specific [place] 1.025 Last Edit by Kate Elliott [facility] on 07/02/25 13: 43 UA Ketone Negative Last Edit by Kate Elliott [facility] on 07/02/25 13:43 UA Bilirubin 0 mg/dL Last Edit by Kate Elliott [facility] on 07/02/25 13:43 UA Glucose 0 mg/dL Last Edit by Kate Elliott [facility] on 07/02/25 13:43 Results Reviewed Results Reviewed: Laboratory Last Values Urine pH (Auto) 6.0 07/02/25 13:42 Specific [place] (Auto) 1.025 07/02/25 13:42 Urine Protein (Auto) 15 mg/dL 07/02/25 13:42 Glucose (UA)(Auto) 0 mg/dL 07/02/25 13:42 Urine Ketones (Auto) Negative 07/02/25 13:42 Urine Blood (Auto) 10 Mathieu/uL 07/02/25 13:42 Urine Nitrite (Auto) Negative 07/02/25 13:42 Urine Bilirubin (Auto) 0 mg/dL 07/02/25 13:42 Urine Urobilinogen (Auto) 0.2 mg/dL 07/02/25 13:42 Leukocyte Esterase (Auto) 0 Asim/uL 07/02/25 13:42 Date of Service: 06/17/25 Procedure(s): US scrotum FINDINGS: Real-time grayscale ultrasound imaging of the scrotum was performed. RIGHT TESTICLE: The right testis measures 4.6 x 2.1 x 3.8 cm and demonstrates normal homogeneous echotexture. Again seen is a hypoechoic mass demonstrating internal vascular flow at the upper pole of the right testis measuring 7 x 6 x 7 mm (previously 7 x 6 x 4 mm). The right testis demonstrates normal color Doppler flow. RIGHT EPIDIDYMIS: Normal in size, shape, and vascularity. LEFT TESTICLE: The left testis measures 4.4 x 2.1 x 4.0 cm and demonstrates normal homogeneous echotexture. No masses are seen. The left testis demonstrates normal color Doppler flow. LEFT EPIDIDYMIS: Normal in size, shape, and vascularity. There is a cyst of the epididymal body measuring 1.9 x 0.6 x 1.6 cm. VARICOCELE: None. HYDROCELE: No significant hydrocele is seen. OTHER COMMENTS: None. IMPRESSION: Hypoechoic mass in the right testis measuring 7 x 6 x 7 mm, slightly larger than on the prior study. Neoplasm is not excluded. Assessment & Plan Assessment & Plan (1) Lump in scrotum: Code(s): N50.89 - Other specified disorders of the male genital organs Category: Medical Plan: Risks, benefits and alternatives to therapy were discussed. These include but are not limited to infection, bleeding, damage to local organs and tissues, need for further interventions. ? Anesthetic risks regarding cardiac arrhythmia, blood clots, and potential mortality were discussed. The patient understands the typical recovery time and the outpatient nature of the procedure. After consideration of these risks the patient gives full informed consent and they wish to move ahead with the procedure. Plan In office urinalysis results reviewed with the patient today; as noted above; will send for urine cytology. Recent scrotal imaging results reviewed with the patient today; as noted above. We did discussed further treatment options of right-sided testicular mass/lump; we discussed further treatment options and risks and benefits of these treatment options. All questions were answered. He currently denies any bothersome urinary issues. He reports be happy with current voiding parameters. Will schedule for right-sided testicular biopsy with partial orchiectomy as disc ussed Follow-up per doctor's orders; or sooner with any issues, concerns, and or questions. Orders: Orders AMB Urinalysis Automated Today Z13.9 - Encounter for screening, unspecified Urine Cytology Today R31.29 - Other microscopic hematuria Patient Instructions: The patient had an opportunity to ask questions regarding the treatment plan. All questions were answered. Physical exam, labs, and imaging were discussed and reviewed in detail. As well as risks, benefits, and discussion of treatment choices. No major barriers to understanding were identified. The patient expressed understanding and agreement with the above treatment plan. The patient was made aware they should contact our office by phone for worsening of their current condition, the appearance of new symptoms, or with any questions or concerns. Compliance is encouraged with any medications and follow up testing that is ordered. It is a privilege to be allowed the opportunity to participate in? your urological care.? Again, if you have any questions or concerns If you have any questions or concerns please do not hesitate to contact me. The office is [phone]. This note is constructed using voice recognition software. While every effort has been made to ensure accuracy mask former errors may have been included. Yours sincerely, ROSALIA Raygoza Coding Level of Care Code Est Pt Level 4 (63657) Diagnoses Lump in scrotum N50.89
== END 2025-07-02 14:09 | disposition home or self-care (01) ==
LOC: HO.HUSH 13:30
PROVIDERS: PCP Internal Medicine; Visit Provider Nurse Practitioner Family
DX: N50.89 Other specified disorders of the male genital organs (principal); Z13.9 Encounter for screening, unspecified
CPT/HCPCS: 99214

== ENCOUNTER 2025-07-02 13:29 | Outpatient (REF) | payer OTHER, SELFPAY | END 2025-07-02 13:30 | disposition home or self-care (01) | LOC: HO.LAB 13:29 | PROVIDERS: PCP Internal Medicine; Visit Provider Nurse Practitioner Family | DX: N50.89 Other specified disorders of the male genital organs (principal); R31.29 Other microscopic hematuria; Z13.89 Encounter for screening for other disorder | CPT/HCPCS: 81003; 88112 ==

== ENCOUNTER 2025-08-18 09:15 | Outpatient (AMB) | payer OTHER, SELFPAY ==
--- NOTE | 2025-08-18 09:17 | MHC.OFFVIS ---
Vital Signs 08/18/25 09:18 Height 5 ft 6 in Weight 143 lb 4.807 oz BMI 23.1 BP 142/99 H Blood Pressure Location Lt brachial Position Sitting Pulse 47 L Intake Visit Reasons: 6 month follow up Intake Note: Chang presents in the office as a 6 month follow up. 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-her for f/u RECAP: 01/02 EGD/sigmoidoscopy: Endoscopy Findings: fundic gland polyposis duodenal polyp Sigmoidoscopy Findings: rectal polyps Path: tubular adenoma duodenum colon tubular adenomas LGD in fundic gland polyps US: 03/04- echogenic lesion GB< steatosis of liver, mild elevated lft MRCP: nml GB --jejunojejunal intuss but no sx 12/2024 EGD/sig with side viewing scope Endoscopy Findings: fundic gland polyposis duodenal polyps--adenomatous Sigmoidoscopy Findings: rectal polyps--hyperplastic seeing endocrine for adrenal adenoma, plan for repeat imaging this month INTERIM: he has no complaints --feels well no abdominal pain no bowel irregularities no weight loss no skin lesions no hematuria EXAM: GENERAL: The patient is well developed and nontoxic, slightly dysmorphic features VITAL SIGNS:see workflow HEENT: Nonicteric sclerae, PERRLA, EOMI. Oropharynx clear. Moist mucous membranes. Conjunctivae appear well perfused. No thyroid mass. CHEST: Chest wall is nontender. HEART: Regular rate and rhythm without murmurs. LUNGS: Clear to auscultation bilaterally. ABDOMEN: Soft, positive bowel sounds, nontender, no organomegaly.no flank tenderness SKIN: No rash, no excessive bruising, petechiae, or purpura. NEUROLOGIC: Cranial nerves II-XII intact without motor/sensory deficit. Psych: normal affect A/P: 1/ LGD and fundic gland polyps 2/ duodenal adenoma 3/ colonic adenomas 4/ Loza syndrome causing above, can also be assoc with thyroid and liver disease, malignancies --seeing endocrinoloy for adrenal adenoma 5/ imaging with intussussception, but no sx PLAN: 1/ repeat EGD and sigmoid 01/04 or earlier if clinically indicated 2/ f/u endocrinology for adenoma 3/ BP slightly high but usually low will recheck today--if still high then can f/u with PCP [facility] Medical History Hx of flexible sigmoidoscopy (12/2023) Loza's syndrome Surgical History History of esophagogastroduodenoscopy (EGD) Hx of colonoscopy Status post proctocolectomy History of removal of cyst History of prostatectomy Family History Father Colon cancer Paternal Grandmother Colon cancer Social History Household Members Other:: single- lives with mom Housing: Apartment Patient Tobacco Use Status: Never used Tobacco e-Cigarette/Vaping Use: Never Used service: No Current occupational status: employed Current occupation: [employer] Cognitive needs: No Hearing needs: No Vision needs: Yes Physical Exam Vital Signs: Last Vital Signs Pulse 47 L 08/18/25 09:18 BP 142/99 H 08/18/25 09:18 BMI result Body Mass Index 23.1 Assessment & Plan Assessment & Plan (1) Loza's syndrome: Comment: And due for 1 year repeat endoscopy Code(s): Q87.89 - Other specified congenital malformation syndromes, not elsewhere classified Category: Medical Plan: as above Coding Level of Care Code Est Pt Level 3 (43915) Diagnoses Loza's syndrome Q87.89
[2025-08-18 09:18] VITALS: BP 142/99; PULSE 47; BMI 23.1
== END 2025-08-18 09:31 | disposition home or self-care (01) ==
LOC: HO.HGI 09:16
PROVIDERS: PCP Internal Medicine; Visit Provider Internal Medicine Gastroenterology
DX: Q87.89 Other specified congenital malformation syndromes, not elsewhere classified (principal)
CPT/HCPCS: 99213

== ENCOUNTER 2025-09-01 11:10 | Day surgery (SDC) | payer OTHER, SELFPAY ==
--- NOTE | 2025-08-27 13:20 | P.CONAN_ITS ---
HPI - Anesthesia Eval Consult details Narrative: 40 yr old male for right ?Orchiectomy,with Testicle Biopsy s/p EGD with MAC 12/2024 Loza's syndrome: s/p colectomy, follows [facility] Active Problems Active Problems: All Active Problems (Updated 12/10/24 @ 15:02 by Magaly Childress, RN) LFT elevation (Acute) Elevated serum lactate dehydrogenase (Acute) Adrenal adenoma (Acute) Hypertension, essential (Acute) LVH (left ventricular hypertrophy) (Acute) Stress at work (Acute) Chest pressure (Acute) Shortness of breath (Acute) Elevated blood pressure reading (Acute) RUQ pain (Acute) Abnormal abdominal ultrasound (Acute) Hydrocele of testis (Acute) Nausea (Acute) Gallbladder polyp (Acute) Lump in scrotum (Acute) History of total colectomy (Acute) Colon cancer screening (Acute) Scalp cyst (Acute) Familial adenomatous polyposis (Acute) Encounter for general adult medical examination with abnormal findings (Acute) Loza's syndrome (Acute) Past Medical History Medical History Hx of flexible sigmoidoscopy (12/2023) Loza's syndrome Family History Family History Father Colon cancer Paternal Grandmother Colon cancer Family history of problems with anesthesia: No Surgical History Surgical History History of esophagogastroduodenoscopy (EGD) Hx of colonoscopy Status post proctocolectomy History of removal of cyst History of prostatectomy History of Problems with Anesthesia: No Social History Social History Household Members Other:: single- lives with mom Housing: Apartment Patient Tobacco Use Status: Never used Tobacco e-Cigarette/Vaping Use: Never Used service: No Current occupational status: employed Current occupation: [employer] Cognitive needs: No Hearing needs: No Vision needs: Yes Meds Allergies Allergy/AdvReac Type Severity Reaction Status Date / Time No Known Allergies Allergy Verified 07/02/25 14:27 Assessment and Plan Final Anesthetic Review Family History of Problems with Anesthesia: No History of Problems with Anesthesia: No
[2025-08-28 13:12] VITALS: BMI 22.8
[2025-09-01] VITALS (8 sets, daily range): BP systolic 124–153; BP diastolic 76–96; PULSE 53–78; RESP 9–19; TEMP 36.1–36.9; O2SAT 97–99; BMI 23.3
[2025-09-01] MEDS: Lactated Ringers 1,000 ML 100 ML IVCONT (12:01)
--- NOTE | 2025-09-01 16:35 | MHC.SHP ---
Pre-Procedural Eval Section A - 24 Hr Update-Section A only Date of Service: 09/01/25 The patient is an INPATIENT: No Changes since office visit: No Cold of Flu in the past 2 weeks, No New Medical Problems, No Changes in Medication and No Patient answered all questions The patient has been examined within 24 hours of the surgical procedure. The History & Physical has been completed within 30 days and I have reviewed it.: Yes Section B - Complete if H&P > 30 days Chief Complaint: Other specified disorders of the male genital orga Details of Present Illness: Right partial orchiectomy Allergies: Allergies Allergy/AdvReac Type Severity Reaction Status Date / Time No Known Allergies Allergy Verified 07/02/25 14:27 Plan I have reviewed the history and physical and performed a pertinent physical examination on my patient. No changes have occurred unless specified. Time Spent With Patient Time: Total time managing care of this patient today ____ minutes.
--- NOTE | 2025-09-01 16:35 | HO.ANESPROP2 ---
HPI - Anesthesia Eval Consult details Narrative: Total/Partial orchiectomy PMFSH Active Problems Active Problems: All Active Problems LFT elevation (Acute) Elevated serum lactate dehydrogenase (Acute) Adrenal adenoma (Acute) Hypertension, essential (Acute) LVH (left ventricular hypertrophy) (Acute) Stress at work (Acute) Chest pressure (Acute) Shortness of breath (Acute) Elevated blood pressure reading (Acute) RUQ pain (Acute) Abnormal abdominal ultrasound (Acute) Hydrocele of testis (Acute) Nausea (Acute) Gallbladder polyp (Acute) Lump in scrotum (Acute) History of total colectomy (Acute) Colon cancer screening (Acute) Scalp cyst (Acute) Familial adenomatous polyposis (Acute) Encounter for general adult medical examination with abnormal findings (Acute) Loza's syndrome (Acute) Past Medical History Medical History (Updated 08/28/25 @ 13:17 by Aidee Garrett RN) HTN (hypertension) Hx of flexible sigmoidoscopy (12/2023) Loza's syndrome Family History Family History Father Colon cancer Paternal Grandmother Colon cancer Family history of problems with anesthesia: No Surgical History Surgical History (Updated 08/28/25 @ 13:14 by Aidee Garrett RN) History of colostomy reversal History of colon resection History of esophagogastroduodenoscopy (EGD) Hx of colonoscopy Status post proctocolectomy History of removal of cyst History of prostatectomy History of Problems with Anesthesia: No Social History Social History Household Members Other:: single- lives with mom Housing: Apartment Patient Tobacco Use Status: Never used Tobacco e-Cigarette/Vaping Use: Never Used Have you been hit, kicked, punched, or otherwise hurt by someone within the past year? If so, by whom?: No Are you DNR?: No Advance Directives: No Advance Directives Information Provided: Yes service: No Current occupational status: employed Current occupation: [employer] Cognitive needs: No Hearing needs: No Vision needs: Yes Meds Allergies Allergy/AdvReac Type Severity Reaction Status Date / Time No Known Allergies Allergy Verified 07/02/25 14:27 Active Medications: Current Medications Lactated Ringer's (Lr) 1,000 mls @ 100 mls/hr IVCONT .Q10H LUZ ELENA Last Admin: 09/01/25 12:01 Dose: 100 mls/hr Exam Height,Weight and Vital Signs: Height 5 ft 6 in Weight 65.4 kg Last Vital Signs Temp 98.5 F 09/01/25 11:42 Pulse 53 09/01/25 11:42 Resp 19 09/01/25 11:42 BP 124/87 09/01/25 11:42 Pulse Ox 97 09/01/25 11:42 O2 Del Method Room Air 09/01/25 11:42 Airway Mallampati Class: II TM Dist: >3cm Neck ROM: Full Loose/Missing/Broken Teeth: No Heart: RRR Lungs: cta Assessment and Plan Assessment Anesthesia Assessment: Anesthesia Plan Discussed and Chart Reviewed Final Anesthetic Review Family History of Problems with Anesthesia: No History of Problems with Anesthesia: No NPO: Yes ASA Class: III Final Preanesthetic Review: No Changes in Pt Med Stat, Meds/Allgs Chart Reviewed, Consent Obtained/Reviewed and Anes Risks/Benef Reviewed Patient Risk: Intermediate Procedure Risk: Low Anesthetic Plan Anesthetic Plan: GA Disposition: Standard PACU
--- NOTE | 2025-09-01 17:59 | P.OP_ITS ---
Operative Note Operative Note Date of Service: 09/01/25 Narrative: PreOperative Diagnosis: Right testicle mass Post Operative Diagnosis: Right testicle mass Procedure: Right testicular excisional partial orchiectomy Surgeon: Dr Noman Hernandez Anesthesia: general Indications for procedure: right testicular mass on imaging. Recommend partial orchiectomy. Procedure: After informed consent was verified the patient was brought to the operating room and placed in a supine position. Anesthesia was administered per protocol. The patient was prepped and draped in a sterile fashion. Safety pause time-out was performed. Antibiotics being given. Palpation was performed through the right inguinal canal. The canal was palpated and an incision marked approximately 8 cm in length running 2 to 3 cm caudad to the inguinal canal. Local anesthetic was infiltrated. The incision was made with a 10 blade through the skin into the subcutaneous tissue. Subcutaneous tissue was dissected initially with pickups and Bovie cautery, then a snap was used to divide tissue until the cord was identified and the surrounding fascia. A Follansbee was used to isolate the cord. A Fern clamp was placed from the lateral superior pubis under the cord structures and the cord was isolated using a quarter-inch [place] drain. This was double wrapped to control vascular drainage from the testicular manipulation. The testicle itself was then delivered from the scrotum through the incision. The gubernacular attachments were divided carefully to minimize postoperative bleeding. Once the testicle had been freed in fully elevated the empty scrotal sac was irrigated. The tunica vaginalis was divided. The edges were snapped. The testicle was delivered. The area of thickening and concern was clearly visible on the lateral aspect at the upper equatorial portion of the testicle. The area was marked using the Bovie cautery. At the [place] drain was tightened. The testicle was divided circumferentially over 1/3 of the aspect using a blade. The area of concern was then elevated and using sharp scissors was removed. Bleeding was controlled with bipolar cautery in order to minimize damage to testicular contents. The area was then irrigated and examined. Any small areas of bleeding were controlled. Edges were then reapproximated. 4-0 Vicryl was used for initial approximation in a running fashion. At that point once edges had been reapproximated the [place] was removed from the cord allowing for revascularization. Minimal bleeding was seen. The testicle was placed back inside the tunica vaginalis and a 3-0 Vicryl was used to close the tunica. The testicle was placed back into the dependent portion of the scrotum. This was manipulated from the scrotum to ensure it was properly positioned. Tessy's fascia was reapproximated with interrupted 3-0 Vicryl. Skin edges were brought together with deep 3-0 Vicryl interrupted sutures. Skin was reapproximated using running 4-0 Monocryl suture. At completion of skin closure glue was used. He tolerated procedure well. Was extubated in the operating room and transferred in a stable condition to the recovery area. Pathology: Right testicle - excision of mass Drains: none
== END 2025-09-01 19:19 | disposition home or self-care (01) ==
PROVIDERS: PCP Internal Medicine; Visit Provider Urology
PROC: (CPT 54522; principal; 2025-09-01 12:50)
DX: N50.89 Other specified disorders of the male genital organs (principal); D13.91 Familial adenomatous polyposis; I10 Essential (primary) hypertension; R31.29 Other microscopic hematuria; Z80.0 Family history of malignant neoplasm of digestive organs; Z90.49 Acquired absence of other specified parts of digestive tract; Z79.899 Other long term (current) drug therapy; Z98.890 Other specified postprocedural states
CPT/HCPCS: 54522; 88304; J0690; J1790; J2003; J2405; J2704; J2795; J3010